=== PATIENT | female | born 1975 | race Caucasian/White ===

== ENCOUNTER 2019-12-16 23:44 | Emergency (ER) | payer OTHER, MEDICAID ==
[2019-12-16] MEDS ORDERED: Sodium Chloride 0.9% 1,000 ML IV ONE (23:57)
--- NOTE | 2019-12-17 00:09 | EDM.PDOC ---
ED HPI GENERAL MEDICAL PROBLEM - General Chief Complaint: General Stated Complaint: OD Time Seen by Provider: 12/16/19 23:50 Source of Information: Reports: Patient, EMS History Limitations: Reports: Altered Mental Status, Intoxication, Uncooperative - History of Present Illness INITIAL COMMENTS - FREE TEXT/NARRATIVE: Ricarda comes into [facility] ED by EMS following a call at 2300 hrs by neighbor who witnessed patient who apparently had collapsed over some furniture this evening. Intoxication is suspected, although EMS personnel did not find empty bottles, med bottles, or notes. Collateral information from friends by phone noted her consumption of a pt of vodka this evening, past history of mental illness taking Latuda, and possibility of . She is lethargic, combative and uncooperative. - Related Data Allergies Allergy/AdvReac Type Severity Reaction Status Date / Time No Known Allergies Allergy Verified 02/02/15 19:16 Past Medical History Psychiatric History: Reports: Bipolar ED ROS GENERAL - Review of Systems Review Of Systems: Unable To Obtain Reason Not Obtained: intoxication ED EXAM, GENERAL - Physical Exam Exam: See Below Exam Limited By: Altered Mental Status General Appearance: Lethargic, Thin Eye Exam: Bilateral Eye: Normal Inspection, PERRL Ears: Normal External Exam Nose: Normal Inspection Throat/Mouth: Normal Lips, No Airway Compromise Head: Normocephalic Neck: Normal Inspection Respiratory/Chest: No Respiratory Distress, Lungs Clear Cardiovascular: Regular Rate, Rhythm, No Murmur GI/Abdominal: Normal Bowel Sounds, Soft, Non-Tender, No Organomegaly, No Distention, No Mass Back Exam: Normal Inspection Extremities: Normal Inspection Neurological: Inattentive, Confused, Disoriented, Slow to Respond Psychiatric: Other (lethargic) Skin Exam: Dry, Intact, Pallor Lymphatic: No Adenopathy Course - Vital Signs Text/Narrative:: Following assessment, IV fluids with D5LR continued for 2L, followed by D5LR .5L with multivits and Thiamine 100 mg IV. Serial ETOH levels of .40 and .33 were obtained over the next 10 hours, with patient awake, alert, and cooperative. She continues to deny excessive ETOH consumption in light of remaining levels, and threatened to walk out AMA if not discharged. She doesn't drive, and will be offered a cab ride home to be with friends. Last Recorded V/S: Last Vital Signs Temp 35.3 C L 12/17/19 00:09 Pulse 73 12/17/19 00:09 Resp 20 12/17/19 04:00 BP 78/36 L 12/17/19 04:00 Pulse Ox 100 12/17/19 04:00 - Orders/Labs/Meds Orders: Active Orders 24 hr Category Date Time Status EKG Documentation Completion [RC] ASDIRECTED Care 12/16/19 23:59 Active Sodium Chloride 0.9% [Normal Saline] 1,000 ml Med 12/17/19 03:00 Active IV ASDIRECTED EKG 12 Lead [EK] Routine Ther 12/16/19 23:57 Ordered Medication Orders Sodium Chloride (Normal Saline) 1,000 mls @ 250 mls/hr IV ASDIRECTED GILBERT Last Admin: 12/17/19 02:49 Dose: 250 mls/hr Labs: Laboratory Tests 12/17/19 12/17/19 12/17/19 Range/Units 00:20 00:20 00:20 WBC 7.4 (4.5-12.0) X10-3/uL RBC 3.56 (3.23-5.20) x10(6)uL Hgb 12.3 (11.5-15.5) g/dL Hct 36.1 (30.0-51.3) % MCV 101.2 H (80-96) fL MCH 34.5 H (27.7-33.6) pg MCHC 34.1 (32.2-35.4) g/dL RDW 13.6 (11.5-15.5) % Plt Count 516 H (125-369) X10(3)uL MPV 7.0 L (7.4-10.4) fL Neut % (Auto) 56.5 (46-82) % Lymph % (Auto) 27.5 (13-37) % [place] % (Auto) 11.6 (4-12) % Eos % (Auto) 3 (1.0-5.0) % Baso % (Auto) 1 (0-2) % Neut # (Auto) 4.2 (1.6-8.3) # Lymph # (Auto) 2.0 (0.6-5.0) # [place] # (Auto) 0.9 (0.0-1.3) # Eos # (Auto) 0.2 (0.0-0.8) # Baso # (Auto) 0.1 (0.0-0.2) # Sodium 143 (135-145) mmol/L Potassium 3.4 L (3.5-5.3) mmol/L Chloride 108 (100-110) mmol/L Carbon Dioxide 22 (21-32) mmol/L BUN 10 (7-18) mg/dL Creatinine 0.6 (0.55-1.02) mg/dL Est Cr Clr Drug Dosing 105.42 mL/min Estimated GFR (MDRD) > 60 (>60) BUN/Creatinine Ratio 16.7 (9-20) Glucose 99 (80-116) mg/dL Calcium 7.9 L (8.6-10.2) mg/dL Urine HCG, Qual (NEGATIVE) Salicylates (<2.8) mg/dL Urine Opiates Screen (NEGATIVE) Ur Oxycodone Screen (NEGATIVE) Ur Propoxyphene Screen (NEGATIVE) Acetaminophen (<2) ug/mL Ur Barbituates Screen (NEGATIVE) Ur Tricyclics Screen (NEGATIVE) Ur Phencyclidine Scrn (NEGATIVE) Ur Amphetamine Screen (NEGATIVE) Urine MDMA Screen (NEGATIVE) U Benzodiazepines Scrn (NEGATIVE) U Cocaine Metab Screen (NEGATIVE) U Marijuana (THC) Screen (NEGATIVE) Ethyl Alcohol 0.45 H* (<0.03) % 12/17/19 12/17/19 12/17/19 Range/Units 00:20 01:19 01:19 WBC (4.5-12.0) X10-3/uL RBC (3.23-5.20) x10(6)uL Hgb (11.5-15.5) g/dL Hct (30.0-51.3) % MCV (80-96) fL MCH (27.7-33.6) pg MCHC (32.2-35.4) g/dL RDW (11.5-15.5) % Plt Count (125-369) X10(3)uL MPV (7.4-10.4) fL Neut % (Auto) (46-82) % Lymph % (Auto) (13-37) % [place] % (Auto) (4-12) % Eos % (Auto) (1.0-5.0) % Baso % (Auto) (0-2) % Neut # (Auto) (1.6-8.3) # Lymph # (Auto) (0.6-5.0) # [place] # (Auto) (0.0-1.3) # Eos # (Auto) (0.0-0.8) # Baso # (Auto) (0.0-0.2) # Sodium (135-145) mmol/L Potassium (3.5-5.3) mmol/L Chloride (100-110) mmol/L Carbon Dioxide (21-32) mmol/L BUN (7-18) mg/dL Creatinine (0.55-1.02) mg/dL Est Cr Clr Drug Dosing mL/min Estimated GFR (MDRD) (>60) BUN/Creatinine Ratio (9-20) Glucose (80-116) mg/dL Calcium (8.6-10.2) mg/dL Urine HCG, Qual Negative (NEGATIVE) Salicylates 5.8 (<2.8) mg/dL Urine Opiates Screen Negative (NEGATIVE) Ur Oxycodone Screen Negative (NEGATIVE) Ur Propoxyphene Screen Negative (NEGATIVE) Acetaminophen < 2 L (<2) ug/mL Ur Barbituates Screen Negative (NEGATIVE) Ur Tricyclics Screen Negative (NEGATIVE) Ur Phencyclidine Scrn Negative (NEGATIVE) Ur Amphetamine Screen Negative (NEGATIVE) Urine MDMA Screen Negative (NEGATIVE) U Benzodiazepines Scrn Negative (NEGATIVE) U Cocaine Metab Screen Negative (NEGATIVE) U Marijuana (THC) Screen Negative (NEGATIVE) Ethyl Alcohol (<0.03) % 12/17/19 12/17/19 12/17/19 Range/Units 02:35 06:00 06:00 WBC (4.5-12.0) X10-3/uL RBC (3.23-5.20) x10(6)uL Hgb (11.5-15.5) g/dL Hct (30.0-51.3) % MCV (80-96) fL MCH (27.7-33.6) pg MCHC (32.2-35.4) g/dL RDW (11.5-15.5) % Plt Count (125-369) X10(3)uL MPV (7.4-10.4) fL Neut % (Auto) (46-82) % Lymph % (Auto) (13-37) % [place] % (Auto) (4-12) % Eos % (Auto) (1.0-5.0) % Baso % (Auto) (0-2) % Neut # (Auto) (1.6-8.3) # Lymph # (Auto) (0.6-5.0) # [place] # (Auto) (0.0-1.3) # Eos # (Auto) (0.0-0.8) # Baso # (Auto) (0.0-0.2) # Sodium 148 H (135-145) mmol/L Potassium 3.8 (3.5-5.3) mmol/L Chloride 114 H D (100-110) mmol/L Carbon Dioxide 24 (21-32) mmol/L BUN 7 (7-18) mg/dL Creatinine 0.5 L (0.55-1.02) mg/dL Est Cr Clr Drug Dosing 126.51 mL/min Estimated GFR (MDRD) > 60 (>60) BUN/Creatinine Ratio 14.0 (9-20) Glucose 85 (80-116) mg/dL Calcium 7.3 L (8.6-10.2) mg/dL Urine HCG, Qual (NEGATIVE) Salicylates (<2.8) mg/dL Urine Opiates Screen (NEGATIVE) Ur Oxycodone Screen (NEGATIVE) Ur Propoxyphene Screen (NEGATIVE) Acetaminophen (<2) ug/mL Ur Barbituates Screen (NEGATIVE) Ur Tricyclics Screen (NEGATIVE) Ur Phencyclidine Scrn (NEGATIVE) Ur Amphetamine Screen (NEGATIVE) Urine MDMA Screen (NEGATIVE) U Benzodiazepines Scrn (NEGATIVE) U Cocaine Metab Screen (NEGATIVE) U Marijuana (THC) Screen (NEGATIVE) Ethyl Alcohol 0.40 H* 0.33 H* (<0.03) % Meds: Medications Generic Name Dose Route Start Last Admin Trade Name Freq PRN Reason Stop Dose Admin Sodium Chloride 1,000 mls @ 250 mls/hr 12/17/19 03:00 12/17/19 02:49 Normal Saline IV 250 mls/hr ASDIRECTED GILBERT Administration Discontinued Medications Generic Name Dose Route Start Last Admin Trade Name Freq PRN Reason Stop Dose Admin Sodium Chloride 1,000 mls @ 999 mls/hr 12/16/19 23:57 12/17/19 01:00 Normal Saline IV 12/17/19 00:57 999 mls/hr .BOLUS ONE Administration Sodium Chloride 1,000 mls @ 500 mls/hr 12/17/19 01:00 12/17/19 01:01 Normal Saline IV 500 mls/hr ASDIRECTED GILBERT Administration Sodium Chloride 500 mls @ 500 mls/hr 12/17/19 06:45 12/17/19 07:16 Normal Saline IV 12/17/19 07:44 500 mls/hr .BOLUS ONE Administration Thiamine HCl 100 mg/ Sodium 101 mls @ 202 mls/hr 12/17/19 06:49 12/17/19 07: 04 Chloride IV 12/17/19 06:50 202 mls/hr ONETIME ONE Administration Multivitamins/Minerals 10 ml 12/17/19 06:49 12/17/19 07:16 Infuvite Adult IV 12/17/19 06:50 10 ml ASDIRECTED ONE Administration Nicotine 21 mg 12/17/19 06:44 12/17/19 07:04 Habitrol TRDERM 12/17/19 06:45 21 mg ONETIME ONE Administration Departure - Departure Time of Disposition: 10:10 Disposition: Home, Self-Care 01 Condition: Fair Clinical Impression: Alcohol intoxication Qualifiers: Complication of substance-induced condition: uncomplicated Qualified Code(s): F10.920 - Alcohol use, unspecified with intoxication, uncomplicated - Discharge Information *PRESCRIPTION DRUG MONITORING PROGRAM REVIEWED*: Not Applicable *COPY OF PRESCRIPTION DRUG MONITORING REPORT IN PATIENT CLAUDIA: Not Applicable Referrals: PCP,None [Primary Care Provider] - Forms: ED Department Discharge Sepsis Event Note - Focused Exam Vital Signs: Vital Signs Temp Pulse Resp BP Pulse Ox 12/17/19 04:00 20 78/36 L 100 12/17/19 03:27 20 82/41 L 100 12/17/19 02:49 20 84/50 L 98 12/17/19 02:11 18 78/41 L 99 12/17/19 01:52 20 96/56 L 91 L 12/17/19 00:39 27 H 84/40 L 92 L 12/17/19 00:27 22 H 98/56 L 95 12/17/19 00:09 35.3 C L 73 14 95/62 97 Date Exam was Performed: 12/17/19 Time Exam was Performed: 10:21 - Problem List & Annotations (1) Alcohol intoxication SNOMED Code(s): 37838618 Code(s): F10.929 - ALCOHOL USE, UNSPECIFIED WITH INTOXICATION, UNSPECIFIED Status: Acute Current Visit: Yes Annotation/Comment:: Absolutely no ETOH suggested, and cannot be alone until fully detoxified. Patient agrees to conditions. Qualifiers: Complication of substance-induced condition: uncomplicated Qualified Code(s ): F10.920 - Alcohol use, unspecified with intoxication, uncomplicated - Problem List Review Problem List Initiated/Reviewed/Updated: Yes - My Orders Last 24 Hours: My Active Orders 12/16/19 23:57 EKG 12 Lead [EK] Routine 12/16/19 23:59 EKG Documentation Completion [RC] ASDIRECTED 12/17/19 03:00 Sodium Chloride 0.9% [Normal Saline] 1,000 ml IV ASDIRECTED - Assessment/Plan Last 24 Hours: My Active Orders 12/16/19 23:57 EKG 12 Lead [EK] Routine 12/16/19 23:59 EKG Documentation Completion [RC] ASDIRECTED 12/17/19 03:00 Sodium Chloride 0.9% [Normal Saline] 1,000 ml IV ASDIRECTED Plan: Follow up with PCP.
[2019-12-17 00:12] VITALS: PULSE 73
[2019-12-17] MEDS ORDERED: Sodium Chloride 0.9% 1,000 ML IV SCH ×2 (01:00→03:00)
[2019-12-17 01:04] LABS: ACETAMINOPHEN < 2 ug/mL (<2)
[2019-12-17 04:01] VITALS: BP 78/36
[2019-12-17] MEDS ORDERED: Nicotine 21 MG/24 Hr Patch TRDERM ONE (06:44)
[2019-12-17] MEDS ORDERED: Sodium Chloride 0.9% 500 ML IV ONE (06:45)
[2019-12-17] MEDS ORDERED: Thiamine 100 MG in Sodium Chloride 0.9% 100 ML IV ONE (06:49)
[2019-12-17] MEDS: MVI, Adult with Vitamin K 10 ML SDV IV ONE (07:16)
== END 2019-12-17 10:15 | disposition home or self-care (01) ==
LOC: FB.ED 23:44
DX: F10.920 Alcohol use, unspecified with intoxication, uncomplicated (principal)
CPT/HCPCS: 36415; 80048; 80305; 80307; 81025; 85025; 93005; 96360; 96361; 99284; A9270; J3411; J7030; J7040; J7050

== ENCOUNTER 2020-11-29 12:43 | Inpatient (IN) | payer OTHER, MEDICAID ==
[2020-11-29] MEDS ORDERED: Sodium Chloride 0.9% 1,000 ML IV ONE (13:04)
[2020-11-29] MEDS ORDERED: MVI, Adult with Vitamin K 10 ML, Thiamine 100 MG, Folic Acid 1 MG, Magnesium Sulfate 3 ... IV SCH ×5 (13:15)
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
[2020-11-29] MEDS ORDERED: Metoclopramide 10 MG/2 ML SDV IVPUSH ONE (14:10)
[2020-11-29] MEDS ORDERED: cefTRIAXone 2 GM Vial IVPUSH ONE (14:10)
[2020-11-29] MEDS ORDERED: LORazepam 2 MG/ML SDV IVPUSH ONE (14:51)
[2020-11-29 15:24] LABS: HEMOGLOBIN A1C 5.6 % (<5.7)
[2020-11-29] MEDS ORDERED: D5 1/2 NS w/ 20 mEq/L KCl 1,000 ML IV SCH ×2 (16:00)
[2020-11-29] MEDS ORDERED: cloNIDine 0.1 MG Tab PO PRN (18:04)
[2020-11-29] MEDS ORDERED: LORazepam 2 MG/ML SDV IV SCH (18:15)
[2020-11-29] MEDS: chlordiazePOXIDE 25 MG Cap PO SCH (18:25)
[2020-11-29] MEDS: Pantoprazole 40 MG Vial IV SCH (18:32)
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
[2020-11-29] MEDS: Sodium Chloride 0.9% 1,000 ML IV SCH (20:05)
[2020-11-30] MEDS: Ondansetron 4 MG/2 ML SDV IVPUSH PRN ×2 (00:35→08:53)
[2020-11-30] MEDS: chlordiazePOXIDE 25 MG Cap PO SCH ×3 (01:52→17:51)
--- NOTE | 2020-11-30 08:20 | PCM.PN ---
- General Info Date of Service: 11/30/20 Admission Dx/Problem (Free Text): Admission Diagnosis/Problem Admission Diagnosis/Problem Alcohol withdrawal syndrome Subjective Update: Patient complains of left lower back pain, inferior to the flank area and lateral to the paraspinal muscles. Patient states that overall she is doing well and feels like she would like to try to eat something today but she still feels nauseated and weak. Denies chest pain or shortness of breath. Functional Status: Reports: Pain Controlled - Review of Systems General: Reports: Weakness, Fatigue, Malaise HEENT: Reports: No Symptoms Pulmonary: Reports: No Symptoms Cardiovascular: Reports: No Symptoms Gastrointestinal: Reports: Decreased Appetite, Nausea Genitourinary: Reports: No Symptoms Musculoskeletal: Reports: Back Pain Skin: Reports: No Symptoms Neurological: Reports: Tremors, Difficulty Walking, Weakness Psychiatric: Reports: No Symptoms - Patient Data Vitals - Most Recent: Last Vital Signs Temp 37.0 C 11/30/20 00:00 Pulse 68 11/30/20 00:00 Resp 16 11/30/20 00:00 BP 124/75 11/30/20 00:00 Pulse Ox 95 11/30/20 00:00 Weight - Most Recent: 63.911 kg I&O - Last 24 Hours: Intake & Output 11/29/20 11/30/20 11/30/20 22:59 06:59 14:59 Intake Total 151 Balance 151 Lab Results Last 24 Hours: Laboratory Results - last 24 hr 11/29/20 11/29/20 11/29/20 Range/Units 13:15 13:15 13:15 WBC 6.4 (3.0-10.3) x10-3/uL RBC 3.83 (3.60-5.20) x10(6)uL Hgb 12.9 (11.4-15.5) g/dL Hct 38.6 (34.2-48.2) % MCV 100.6 H (76.7-100.5) fL MCH 33.5 (23.9-33.9) pg MCHC 33.3 (31.9-34.8) g/dL RDW 13.8 (12.3-16.5) % Plt Count 84 L (151-488) x10(3)uL MPV 8.7 (7.1-12.4) fL Neut % (Auto) 87.8 H (30.8-76.2) % Lymph % (Auto) 8.1 L (18.4-52.1) % [place] % (Auto) 3.5 L (4.4-15.7) % Eos % (Auto) 0.0 L (0.6-8.1) % Baso % (Auto) 0.6 (0.2-1.5) % Neut # (Auto) 5.6 (1.5-6.3) x10-3/uL Lymph # (Auto) 0.5 L (1.0-4.4) x10-3/uL [place] # (Auto) 0.2 L (0.3-1.0) x10-3/uL Eos # (Auto) 0.0 (0.0-0.8) x10-3/uL Baso # (Auto) 0.0 (0.0-0.1) x10-3/uL Sodium 139 (135-145) mmol/L Potassium 3.3 L (3.5-5.3) mmol/L Chloride 93 L D (100-110) mmol/L Carbon Dioxide 23 (21-32) mmol/L BUN 15 (7-18) mg/dL Creatinine 0.6 (0.55-1.02) mg/dL Est Cr Clr Drug Dosing TNP Estimated GFR (MDRD) > 60 (>60) BUN/Creatinine Ratio 25.0 H (9-20) Glucose 232 H D (80-116) mg/dL POC Glucose (74-100) mg/dL Hemoglobin A1c (<5.7) % Calcium 8.6 (8.6-10.2) mg/dL Magnesium (1.8-2.5) mg/dL Total Bilirubin 1.3 (0.1-1.3) mg/dL AST 96 H (5-25) IU/L ALT 67 H (12-36) U/L Alkaline Phosphatase 65 (56-112) IU/L Troponin I < 4.0 L (4.0-60.3) pg/mL C-Reactive Protein 0.7 (0.5-0.9) mg/dL Total Protein 8.1 H (6.0-8.0) g/dL Albumin 4.4 (3.5-5.2) g/dL Globulin 3.7 g/dL Albumin/Globulin Ratio 1.2 Lipase 101 (73-393) U/L Vitamin B12 (193-986) pg/mL TSH, Ultra Sensitive (0.36-3.74) IU/mL Urine Color (YELLOW) Urine Appearance (CLEAR) Urine pH (5.0-6.5) Ur Specific [place] (1.010-1.025) Urine Protein (NEGATIVE) mg/dL Urine Glucose (UA) (NORMAL) mg/dL Urine Ketones (NEGATIVE) mg/dL Urine Occult Blood (NEGATIVE) Urine Nitrite (NEGATIVE) Urine Bilirubin (NEGATIVE) Urine Urobilinogen (NEGATIVE) mg/dL Ur Leukocyte Esterase (NEGATIVE) Urine RBC (0-5) Urine WBC (0-5) Ur Squamous Epith Cells (NS,R,O) Urine Bacteria (NS) Urine HCG, Qual (NEGATIVE) Urine Opiates Screen (NEGATIVE) Ur Oxycodone Screen (NEGATIVE) Ur Propoxyphene Screen (NEGATIVE) Ur Barbituates Screen (NEGATIVE) Ur Tricyclics Screen (NEGATIVE) Ur Phencyclidine Scrn (NEGATIVE) Ur Amphetamine Screen (NEGATIVE) Urine MDMA Screen (NEGATIVE) U Benzodiazepines Scrn (NEGATIVE) U Cocaine Metab Screen (NEGATIVE) U Marijuana (THC) Screen (NEGATIVE) Ethyl Alcohol (<0.03) % SARS-CoV-2 RNA (CLYDE) (NEGATIVE) 11/29/20 11/29/20 11/29/20 Range/Units 13:15 13:15 13:15 WBC (3.0-10.3) x10-3/uL RBC (3.60-5.20) x10(6)uL Hgb (11.4-15.5) g/dL Hct (34.2-48.2) % MCV (76.7-100.5) fL MCH (23.9-33.9) pg MCHC (31.9-34.8) g/dL RDW (12.3-16.5) % Plt Count (151-488) x10(3)uL MPV (7.1-12.4) fL Neut % (Auto) (30.8-76.2) % Lymph % (Auto) (18.4-52.1) % [place] % (Auto) (4.4-15.7) % Eos % (Auto) (0.6-8.1) % Baso % (Auto) (0.2-1.5) % Neut # (Auto) (1.5-6.3) x10-3/uL Lymph # (Auto) (1.0-4.4) x10-3/uL [place] # (Auto) (0.3-1.0) x10-3/uL Eos # (Auto) (0.0-0.8) x10-3/uL Baso # (Auto) (0.0-0.1) x10-3/uL Sodium (135-145) mmol/L Potassium (3.5-5.3) mmol/L Chloride (100-110) mmol/L Carbon Dioxide (21-32) mmol/L BUN (7-18) mg/dL Creatinine (0.55-1.02) mg/dL Est Cr Clr Drug Dosing Estimated GFR (MDRD) (>60) BUN/Creatinine Ratio (9-20) Glucose (80-116) mg/dL POC Glucose (74-100) mg/dL Hemoglobin A1c 5.6 (<5.7) % Calcium (8.6-10.2) mg/dL Magnesium 1.6 L (1.8-2.5) mg/dL Total Bilirubin (0.1-1.3) mg/dL AST (5-25) IU/L ALT (12-36) U/L Alkaline Phosphatase (56-112) IU/L Troponin I (4.0-60.3) pg/mL C-Reactive Protein (0.5-0.9) mg/dL Total Protein (6.0-8.0) g/dL Albumin (3.5-5.2) g/dL Globulin g/dL Albumin/Globulin Ratio Lipase (73-393) U/L Vitamin B12 (193-986) pg/mL TSH, Ultra Sensitive (0.36-3.74) IU/mL Urine Color (YELLOW) Urine Appearance (CLEAR) Urine pH (5.0-6.5) Ur Specific [place] (1.010-1.025) Urine Protein (NEGATIVE) mg/dL Urine Glucose (UA) (NORMAL) mg/dL Urine Ketones (NEGATIVE) mg/dL Urine Occult Blood (NEGATIVE) Urine Nitrite (NEGATIVE) Urine Bilirubin (NEGATIVE) Urine Urobilinogen (NEGATIVE) mg/dL Ur Leukocyte Esterase (NEGATIVE) Urine RBC (0-5) Urine WBC (0-5) Ur Squamous Epith Cells (NS,R,O) Urine Bacteria (NS) Urine HCG, Qual (NEGATIVE) Urine Opiates Screen (NEGATIVE) Ur Oxycodone Screen (NEGATIVE) Ur Propoxyphene Screen (NEGATIVE) Ur Barbituates Screen (NEGATIVE) Ur Tricyclics Screen (NEGATIVE) Ur Phencyclidine Scrn (NEGATIVE) Ur Amphetamine Screen (NEGATIVE) Urine MDMA Screen (NEGATIVE) U Benzodiazepines Scrn (NEGATIVE) U Cocaine Metab Screen (NEGATIVE) U Marijuana (THC) Screen (NEGATIVE) Ethyl Alcohol < 0.03 (<0.03) % SARS-CoV-2 RNA (CLYDE) (NEGATIVE) 11/29/20 11/29/20 11/29/20 Range/Units 13:15 13:25 13:25 WBC (3.0-10.3) x10-3/uL RBC (3.60-5.20) x10(6)uL Hgb (11.4-15.5) g/dL Hct (34.2-48.2) % MCV (76.7-100.5) fL MCH (23.9-33.9) pg MCHC (31.9-34.8) g/dL RDW (12.3-16.5) % Plt Count (151-488) x10(3)uL MPV (7.1-12.4) fL Neut % (Auto) (30.8-76.2) % Lymph % (Auto) (18.4-52.1) % [place] % (Auto) (4.4-15.7) % Eos % (Auto) (0.6-8.1) % Baso % (Auto) (0.2-1.5) % Neut # (Auto) (1.5-6.3) x10-3/uL Lymph # (Auto) (1.0-4.4) x10-3/uL [place] # (Auto) (0.3-1.0) x10-3/uL Eos # (Auto) (0.0-0.8) x10-3/uL Baso # (Auto) (0.0-0.1) x10-3/uL Sodium (135-145) mmol/L Potassium (3.5-5.3) mmol/L Chloride (100-110) mmol/L Carbon Dioxide (21-32) mmol/L BUN (7-18) mg/dL Creatinine (0.55-1.02) mg/dL Est Cr Clr Drug Dosing Estimated GFR (MDRD) (>60) BUN/Creatinine Ratio (9-20) Glucose (80-116) mg/dL POC Glucose (74-100) mg/dL Hemoglobin A1c (<5.7) % Calcium (8.6-10.2) mg/dL Magnesium (1.8-2.5) mg/dL Total Bilirubin (0.1-1.3) mg/dL AST (5-25) IU/L ALT (12-36) U/L Alkaline Phosphatase (56-112) IU/L Troponin I (4.0-60.3) pg/mL C-Reactive Protein (0.5-0.9) mg/dL Total Protein (6.0-8.0) g/dL Albumin (3.5-5.2) g/dL Globulin g/dL Albumin/Globulin Ratio Lipase (73-393) U/L Vitamin B12 759 (193-986) pg/mL TSH, Ultra Sensitive 1.05 (0.36-3.74) IU/mL Urine Color Yellow (YELLOW) Urine Appearance Cloudy (CLEAR) Urine pH 6.5 (5.0-6.5) Ur Specific [place] 1.010 (1.010-1.025) Urine Protein Trace (NEGATIVE) mg/dL Urine Glucose (UA) 50 H (NORMAL) mg/dL Urine Ketones 150 H (NEGATIVE) mg/dL Urine Occult Blood Moderate H (NEGATIVE) Urine Nitrite Negative (NEGATIVE) Urine Bilirubin Negative (NEGATIVE) Urine Urobilinogen Normal (NEGATIVE) mg/dL Ur Leukocyte Esterase Small H (NEGATIVE) Urine RBC 5-10 H (0-5) Urine WBC 30-40 H (0-5) Ur Squamous Epith Cells Few H (NS,R,O) Urine Bacteria Many H (NS) Urine HCG, Qual Negative (NEGATIVE) Urine Opiates Screen (NEGATIVE) Ur Oxycodone Screen (NEGATIVE) Ur Propoxyphene Screen (NEGATIVE) Ur Barbituates Screen (NEGATIVE) Ur Tricyclics Screen (NEGATIVE) Ur Phencyclidine Scrn (NEGATIVE) Ur Amphetamine Screen (NEGATIVE) Urine MDMA Screen (NEGATIVE) U Benzodiazepines Scrn (NEGATIVE) U Cocaine Metab Screen (NEGATIVE) U Marijuana (THC) Screen (NEGATIVE) Ethyl Alcohol (<0.03) % SARS-CoV-2 RNA (CLYDE) (NEGATIVE) 11/29/20 11/29/20 11/29/20 Range/Units 13:25 14:27 15:08 WBC (3.0-10.3) x10-3/uL RBC (3.60-5.20) x10(6)uL Hgb (11.4-15.5) g/dL Hct (34.2-48.2) % MCV (76.7-100.5) fL MCH (23.9-33.9) pg MCHC (31.9-34.8) g/dL RDW (12.3-16.5) % Plt Count (151-488) x10(3)uL MPV (7.1-12.4) fL Neut % (Auto) (30.8-76.2) % Lymph % (Auto) (18.4-52.1) % [place] % (Auto) (4.4-15.7) % Eos % (Auto) (0.6-8.1) % Baso % (Auto) (0.2-1.5) % Neut # (Auto) (1.5-6.3) x10-3/uL Lymph # (Auto) (1.0-4.4) x10-3/uL [place] # (Auto) (0.3-1.0) x10-3/uL Eos # (Auto) (0.0-0.8) x10-3/uL Baso # (Auto) (0.0-0.1) x10-3/uL Sodium (135-145) mmol/L Potassium (3.5-5.3) mmol/L Chloride (100-110) mmol/L Carbon Dioxide (21-32) mmol/L BUN (7-18) mg/dL Creatinine (0.55-1.02) mg/dL Est Cr Clr Drug Dosing Estimated GFR (MDRD) (>60) BUN/Creatinine Ratio (9-20) Glucose (80-116) mg/dL POC Glucose 201 H (74-100) mg/dL Hemoglobin A1c (<5.7) % Calcium (8.6-10.2) mg/dL Magnesium (1.8-2.5) mg/dL Total Bilirubin (0.1-1.3) mg/dL AST (5-25) IU/L ALT (12-36) U/L Alkaline Phosphatase (56-112) IU/L Troponin I (4.0-60.3) pg/mL C-Reactive Protein (0.5-0.9) mg/dL Total Protein (6.0-8.0) g/dL Albumin (3.5-5.2) g/dL Globulin g/dL Albumin/Globulin Ratio Lipase (73-393) U/L Vitamin B12 (193-986) pg/mL TSH, Ultra Sensitive (0.36-3.74) IU/mL Urine Color (YELLOW) Urine Appearance (CLEAR) Urine pH (5.0-6.5) Ur Specific [place] (1.010-1.025) Urine Protein (NEGATIVE) mg/dL Urine Glucose (UA) (NORMAL) mg/dL Urine Ketones (NEGATIVE) mg/dL Urine Occult Blood (NEGATIVE) Urine Nitrite (NEGATIVE) Urine Bilirubin (NEGATIVE) Urine Urobilinogen (NEGATIVE) mg/dL Ur Leukocyte Esterase (NEGATIVE) Urine RBC (0-5) Urine WBC (0-5) Ur Squamous Epith Cells (NS,R,O) Urine Bacteria (NS) Urine HCG, Qual (NEGATIVE) Urine Opiates Screen Negative (NEGATIVE) Ur Oxycodone Screen Negative (NEGATIVE) Ur Propoxyphene Screen Negative (NEGATIVE) Ur Barbituates Screen Negative (NEGATIVE) Ur Tricyclics Screen Negative (NEGATIVE) Ur Phencyclidine Scrn Negative (NEGATIVE) Ur Amphetamine Screen Negative (NEGATIVE) Urine MDMA Screen Negative (NEGATIVE) U Benzodiazepines Scrn Negative (NEGATIVE) U Cocaine Metab Screen Negative (NEGATIVE) U Marijuana (THC) Screen Negative (NEGATIVE) Ethyl Alcohol (<0.03) % SARS-CoV-2 RNA (CLYDE) Negative (NEGATIVE) 11/30/20 11/30/20 Range/Units 06:12 06:12 WBC 6.3 (3.0-10.3) x10-3/uL RBC 3.16 L (3.60-5.20) x10(6)uL Hgb 10.7 L (11.4-15.5) g/dL Hct 31.5 L (34.2-48.2) % MCV 99.4 (76.7-100.5) fL MCH 33.9 (23.9-33.9) pg MCHC 34.1 (31.9-34.8) g/dL RDW 13.4 (12.3-16.5) % Plt Count 65 L (151-488) x10(3)uL MPV 8.7 (7.1-12.4) fL Neut % (Auto) 77.6 H (30.8-76.2) % Lymph % (Auto) 16.5 L (18.4-52.1) % [place] % (Auto) 4.5 (4.4-15.7) % Eos % (Auto) 1.0 (0.6-8.1) % Baso % (Auto) 0.4 (0.2-1.5) % Neut # (Auto) 4.9 (1.5-6.3) x10-3/uL Lymph # (Auto) 1.0 (1.0-4.4) x10-3/uL [place] # (Auto) 0.3 (0.3-1.0) x10-3/uL Eos # (Auto) 0.1 (0.0-0.8) x10-3/uL Baso # (Auto) 0.0 (0.0-0.1) x10-3/uL Sodium 132 L (135-145) mmol/L Potassium 2.7 L* (3.5-5.3) mmol/L Chloride 96 L (100-110) mmol/L Carbon Dioxide 22 (21-32) mmol/L BUN 11 (7-18) mg/dL Creatinine 0.5 L (0.55-1.02) mg/dL Est Cr Clr Drug Dosing 118.85 Estimated GFR (MDRD) > 60 (>60) BUN/Creatinine Ratio 22.0 H (9-20) Glucose 78 L D (80-116) mg/dL POC Glucose (74-100) mg/dL Hemoglobin A1c (<5.7) % Calcium 7.1 L (8.6-10.2) mg/dL Magnesium 2.0 (1.8-2.5) mg/dL Total Bilirubin 0.8 (0.1-1.3) mg/dL AST 65 H D (5-25) IU/L ALT 47 H D (12-36) U/L Alkaline Phosphatase 52 L (56-112) IU/L Troponin I (4.0-60.3) pg/mL C-Reactive Protein (0.5-0.9) mg/dL Total Protein 6.2 (6.0-8.0) g/dL Albumin 3.3 L (3.5-5.2) g/dL Globulin 2.9 g/dL Albumin/Globulin Ratio 1.1 Lipase (73-393) U/L Vitamin B12 (193-986) pg/mL TSH, Ultra Sensitive (0.36-3.74) IU/mL Urine Color (YELLOW) Urine Appearance (CLEAR) Urine pH (5.0-6.5) Ur Specific [place] (1.010-1.025) Urine Protein (NEGATIVE) mg/dL Urine Glucose (UA) (NORMAL) mg/dL Urine Ketones (NEGATIVE) mg/dL Urine Occult Blood (NEGATIVE) Urine Nitrite (NEGATIVE) Urine Bilirubin (NEGATIVE) Urine Urobilinogen (NEGATIVE) mg/dL Ur Leukocyte Esterase (NEGATIVE) Urine RBC (0-5) Urine WBC (0-5) Ur Squamous Epith Cells (NS,R,O) Urine Bacteria (NS) Urine HCG, Qual (NEGATIVE) Urine Opiates Screen (NEGATIVE) Ur Oxycodone Screen (NEGATIVE) Ur Propoxyphene Screen (NEGATIVE) Ur Barbituates Screen (NEGATIVE) Ur Tricyclics Screen (NEGATIVE) Ur Phencyclidine Scrn (NEGATIVE) Ur Amphetamine Screen (NEGATIVE) Urine MDMA Screen (NEGATIVE) U Benzodiazepines Scrn (NEGATIVE) U Cocaine Metab Screen (NEGATIVE) U Marijuana (THC) Screen (NEGATIVE) Ethyl Alcohol (<0.03) % SARS-CoV-2 RNA (CLYDE) (NEGATIVE) Jonathon Results Last 24 Hours: Microbiology 11/29/20 13:25 Urine Culture - Preliminary Urine, Clean Catch Gram Negative Rods Med Orders - Current: Current Medications Ceftriaxone Sodium (Ceftriaxone 1 Gm Vial) 1 gm IVPUSH Q24H [facility] Chlordiazepoxide HCl (Librium) 25 mg PO Q8H [facility] Last Admin: 11/30/20 01:52 Dose: 25 mg Documented by: Clonidine HCl (Catapres) 0.1 mg PO Q6H PRN PRN Reason: Adrenergic Systems Folic Acid (Folic Acid) 1 mg PO DAILY [facility] Multivitamins/Minerals 10 ml/Thiamine HCl 100 mg/ Folic Acid 1 mg/ Magnesium Sulfate 3 gm/ Sodium Chloride 1,017.2 mls @ 999 mls/hr IV ASDIRECTED [facility] Last Admin: 11/29/20 13:47 Dose: 999 mls/hr Documented by: Sodium Chloride (Normal Saline) 1,000 mls @ 75 mls/hr IV ASDIRECTED [facility] Last Admin: 11/29/20 20:05 Dose: 75 mls/hr Documented by: Lorazepam (Ativan) 0 mg IV ASDIRECTED [facility]; Protocol Ondansetron HCl (Zofran) 4 mg IVPUSH Q4H PRN PRN Reason: Nausea/Vomiting Last Admin: 11/30/20 00:35 Dose: 4 mg Documented by: Pantoprazole Sodium (Protonix Iv) 40 mg IV DAILY [facility] Last Admin: 11/29/20 18:32 Dose: 40 mg Documented by: Potassium Chloride (Potassium Chloride 20 Meq Tab.Er) 40 meq PO BID [facility] Tetrahydrozoline HCl (Peg 400/Tetrahydrozoline Ophth Soln 15 Ml Bottle) 2 ml EYEBOTH ASDIRECTED PRN PRN Reason: Dry Eyes Thiamine HCl (Vitamin B-1) 100 mg PO DAILY [facility] Thiamine HCl (Thiamine 100 Mg Tab) 100 mg PO BEDTIME [facility] Discontinued Medications Ceftriaxone Sodium (Rocephin) 1 gm IVPUSH ONETIME ONE Stop: 11/29/20 14:11 Last Admin: 11/29/20 14:25 Dose: 1 gm Documented by: Sodium Chloride (Normal Saline) 1,000 mls @ 999 mls/hr IV .BOLUS ONE Stop: 11/29/20 14:04 Last Admin: 11/29/20 13:05 Dose: 999 mls/hr Documented by: Potassium Chloride/Dextrose/Sod Cl (D5 1/2 Ns W/ 20 Meq/L Kcl) 1,000 mls @ 125 mls/hr IV ASDIRECTED [facility] Potassium Chloride/Dextrose/Sod Cl (D5 1/2 Ns W/ 20 Meq/L Kcl) 1,000 mls @ 125 mls/hr IV Q8H [facility] Last Admin: 11/29/20 16:30 Dose: 125 mls/hr Documented by: Lorazepam (Ativan) 1 mg IVPUSH ONETIME ONE Stop: 11/29/20 14:52 Last Admin: 11/29/20 15:10 Dose: 1 mg Documented by: Metoclopramide HCl (Reglan) 10 mg IVPUSH ONETIME ONE Stop: 11/29/20 14:11 Last Admin: 11/29/20 14:20 Dose: 10 mg Documented by: - Exam Quality Assessment: Supplemental Oxygen General: Alert, Oriented, Cooperative, Mild Distress HEENT: EOMI, Mucous Membr. Moist/[place] Lungs: Clear to Auscultation Cardiovascular: Regular Rate, Regular Rhythm GI/Abdominal Exam: Normal Bowel Sounds, Soft, Non-Tender Back Exam: Other (Areas of discolored skin secondary to skin grafts, no obvious swelling, edema, ecchymosis in the area of the left lower lateral back but there is tenderness to palpation). No: CVA Tenderness (R), CVA Tenderness (L), Vertebral Tenderness Extremities: Normal Inspection Peripheral Pulses: 2+: Radial (L), Radial (R), Dorsalis Pedis (L), Dorsalis Pedis (R) Skin: Warm, Dry Neurological: No: Normal Gait Psy/Mental Status: Alert, Normal Affect - Patient Data Lab Results Last 24 hrs: Laboratory Results - last 24 hr 11/29/20 11/29/20 11/29/20 Range/Units 13:15 13:15 13:15 WBC 6.4 (3.0-10.3) x10-3/uL RBC 3.83 (3.60-5.20) x10(6)uL Hgb 12.9 (11.4-15.5) g/dL Hct 38.6 (34.2-48.2) % MCV 100.6 H (76.7-100.5) fL MCH 33.5 (23.9-33.9) pg MCHC 33.3 (31.9-34.8) g/dL RDW 13.8 (12.3-16.5) % Plt Count 84 L (151-488) x10(3)uL MPV 8.7 (7.1-12.4) fL Neut % (Auto) 87.8 H (30.8-76.2) % Lymph % (Auto) 8.1 L (18.4-52.1) % [place] % (Auto) 3.5 L (4.4-15.7) % Eos % (Auto) 0.0 L (0.6-8.1) % Baso % (Auto) 0.6 (0.2-1.5) % Neut # (Auto) 5.6 (1.5-6.3) x10-3/uL Lymph # (Auto) 0.5 L (1.0-4.4) x10-3/uL [place] # (Auto) 0.2 L (0.3-1.0) x10-3/uL Eos # (Auto) 0.0 (0.0-0.8) x10-3/uL Baso # (Auto) 0.0 (0.0-0.1) x10-3/uL Sodium 139 (135-145) mmol/L Potassium 3.3 L (3.5-5.3) mmol/L Chloride 93 L D (100-110) mmol/L Carbon Dioxide 23 (21-32) mmol/L BUN 15 (7-18) mg/dL Creatinine 0.6 (0.55-1.02) mg/dL Est Cr Clr Drug Dosing TNP Estimated GFR (MDRD) > 60 (>60) BUN/Creatinine Ratio 25.0 H (9-20) Glucose 232 H D (80-116) mg/dL POC Glucose (74-100) mg/dL Hemoglobin A1c (<5.7) % Calcium 8.6 (8.6-10.2) mg/dL Magnesium (1.8-2.5) mg/dL Total Bilirubin 1.3 (0.1-1.3) mg/dL AST 96 H (5-25) IU/L ALT 67 H (12-36) U/L Alkaline Phosphatase 65 (56-112) IU/L Troponin I < 4.0 L (4.0-60.3) pg/mL C-Reactive Protein 0.7 (0.5-0.9) mg/dL Total Protein 8.1 H (6.0-8.0) g/dL Albumin 4.4 (3.5-5.2) g/dL Globulin 3.7 g/dL Albumin/Globulin Ratio 1.2 Lipase 101 (73-393) U/L Vitamin B12 (193-986) pg/mL TSH, Ultra Sensitive (0.36-3.74) IU/mL Urine Color (YELLOW) Urine Appearance (CLEAR) Urine pH (5.0-6.5) Ur Specific [place] (1.010-1.025) Urine Protein (NEGATIVE) mg/dL Urine Glucose (UA) (NORMAL) mg/dL Urine Ketones (NEGATIVE) mg/dL Urine Occult Blood (NEGATIVE) Urine Nitrite (NEGATIVE) Urine Bilirubin (NEGATIVE) Urine Urobilinogen (NEGATIVE) mg/dL Ur Leukocyte Esterase (NEGATIVE) Urine RBC (0-5) Urine WBC (0-5) Ur Squamous Epith Cells (NS,R,O) Urine Bacteria (NS) Urine HCG, Qual (NEGATIVE) Urine Opiates Screen (NEGATIVE) Ur Oxycodone Screen (NEGATIVE) Ur Propoxyphene Screen (NEGATIVE) Ur Barbituates Screen (NEGATIVE) Ur Tricyclics Screen (NEGATIVE) Ur Phencyclidine Scrn (NEGATIVE) Ur Amphetamine Screen (NEGATIVE) Urine MDMA Screen (NEGATIVE) U Benzodiazepines Scrn (NEGATIVE) U Cocaine Metab Screen (NEGATIVE) U Marijuana (THC) Screen (NEGATIVE) Ethyl Alcohol (<0.03) % SARS-CoV-2 RNA (LCYDE) (NEGATIVE) 11/29/20 11/29/20 11/29/20 Range/Units 13:15 13:15 13:15 WBC (3.0-10.3) x10-3/uL RBC (3.60-5.20) x10(6)uL Hgb (11.4-15.5) g/dL Hct (34.2-48.2) % MCV (76.7-100.5) fL MCH (23.9-33.9) pg MCHC (31.9-34.8) g/dL RDW (12.3-16.5) % Plt Count (151-488) x10(3)uL MPV (7.1-12.4) fL Neut % (Auto) (30.8-76.2) % Lymph % (Auto) (18.4-52.1) % [place] % (Auto) (4.4-15.7) % Eos % (Auto) (0.6-8.1) % Baso % (Auto) (0.2-1.5) % Neut # (Auto) (1.5-6.3) x10-3/uL Lymph # (Auto) (1.0-4.4) x10-3/uL [place] # (Auto) (0.3-1.0) x10-3/uL Eos # (Auto) (0.0-0.8) x10-3/uL Baso # (Auto) (0.0-0.1) x10-3/uL Sodium (135-145) mmol/L Potassium (3.5-5.3) mmol/L Chloride (100-110) mmol/L Carbon Dioxide (21-32) mmol/L BUN (7-18) mg/dL Creatinine (0.55-1.02) mg/dL Est Cr Clr Drug Dosing Estimated GFR (MDRD) (>60) BUN/Creatinine Ratio (9-20) Glucose (80-116) mg/dL POC Glucose (74-100) mg/dL Hemoglobin A1c 5.6 (<5.7) % Calcium (8.6-10.2) mg/dL Magnesium 1.6 L (1.8-2.5) mg/dL Total Bilirubin (0.1-1.3) mg/dL AST (5-25) IU/L ALT (12-36) U/L Alkaline Phosphatase (56-112) IU/L Troponin I (4.0-60.3) pg/mL C-Reactive Protein (0.5-0.9) mg/dL Total Protein (6.0-8.0) g/dL Albumin (3.5-5.2) g/dL Globulin g/dL Albumin/Globulin Ratio Lipase (73-393) U/L Vitamin B12 (193-986) pg/mL TSH, Ultra Sensitive (0.36-3.74) IU/mL Urine Color (YELLOW) Urine Appearance (CLEAR) Urine pH (5.0-6.5) Ur Specific [place] (1.010-1.025) Urine Protein (NEGATIVE) mg/dL Urine Glucose (UA) (NORMAL) mg/dL Urine Ketones (NEGATIVE) mg/dL Urine Occult Blood (NEGATIVE) Urine Nitrite (NEGATIVE) Urine Bilirubin (NEGATIVE) Urine Urobilinogen (NEGATIVE) mg/dL Ur Leukocyte Esterase (NEGATIVE) Urine RBC (0-5) Urine WBC (0-5) Ur Squamous Epith Cells (NS,R,O) Urine Bacteria (NS) Urine HCG, Qual (NEGATIVE) Urine Opiates Screen (NEGATIVE) Ur Oxycodone Screen (NEGATIVE) Ur Propoxyphene Screen (NEGATIVE) Ur Barbituates Screen (NEGATIVE) Ur Tricyclics Screen (NEGATIVE) Ur Phencyclidine Scrn (NEGATIVE) Ur Amphetamine Screen (NEGATIVE) Urine MDMA Screen (NEGATIVE) U Benzodiazepines Scrn (NEGATIVE) U Cocaine Metab Screen (NEGATIVE) U Marijuana (THC) Screen (NEGATIVE) Ethyl Alcohol < 0.03 (<0.03) % SARS-CoV-2 RNA (CLYDE) (NEGATIVE) 11/29/20 11/29/20 11/29/20 Range/Units 13:15 13:25 13:25 WBC (3.0-10.3) x10-3/uL RBC (3.60-5.20) x10(6)uL Hgb (11.4-15.5) g/dL Hct (34.2-48.2) % MCV (76.7-100.5) fL MCH (23.9-33.9) pg MCHC (31.9-34.8) g/dL RDW (12.3-16.5) % Plt Count (151-488) x10(3)uL MPV (7.1-12.4) fL Neut % (Auto) (30.8-76.2) % Lymph % (Auto) (18.4-52.1) % [place] % (Auto) (4.4-15.7) % Eos % (Auto) (0.6-8.1) % Baso % (Auto) (0.2-1.5) % Neut # (Auto) (1.5-6.3) x10-3/uL Lymph # (Auto) (1.0-4.4) x10-3/uL [place] # (Auto) (0.3-1.0) x10-3/uL Eos # (Auto) (0.0-0.8) x10-3/uL Baso # (Auto) (0.0-0.1) x10-3/uL Sodium (135-145) mmol/L Potassium (3.5-5.3) mmol/L Chloride (100-110) mmol/L Carbon Dioxide (21-32) mmol/L BUN (7-18) mg/dL Creatinine (0.55-1.02) mg/dL Est Cr Clr Drug Dosing Estimated GFR (MDRD) (>60) BUN/Creatinine Ratio (9-20) Glucose (80-116) mg/dL POC Glucose (74-100) mg/dL Hemoglobin A1c (<5.7) % Calcium (8.6-10.2) mg/dL Magnesium (1.8-2.5) mg/dL Total Bilirubin (0.1-1.3) mg/dL AST (5-25) IU/L ALT (12-36) U/L Alkaline Phosphatase (56-112) IU/L Troponin I (4.0-60.3) pg/mL C-Reactive Protein (0.5-0.9) mg/dL Total Protein (6.0-8.0) g/dL Albumin (3.5-5.2) g/dL Globulin g/dL Albumin/Globulin Ratio Lipase (73-393) U/L Vitamin B12 759 (193-986) pg/mL TSH, Ultra Sensitive 1.05 (0.36-3.74) IU/mL Urine Color Yellow (YELLOW) Urine Appearance Cloudy (CLEAR) Urine pH 6.5 (5.0-6.5) Ur Specific [place] 1.010 (1.010-1.025) Urine Protein Trace (NEGATIVE) mg/dL Urine Glucose (UA) 50 H (NORMAL) mg/dL Urine Ketones 150 H (NEGATIVE) mg/dL Urine Occult Blood Moderate H (NEGATIVE) Urine Nitrite Negative (NEGATIVE) Urine Bilirubin Negative (NEGATIVE) Urine Urobilinogen Normal (NEGATIVE) mg/dL Ur Leukocyte Esterase Small H (NEGATIVE) Urine RBC 5-10 H (0-5) Urine WBC 30-40 H (0-5) Ur Squamous Epith Cells Few H (NS,R,O) Urine Bacteria Many H (NS) Urine HCG, Qual Negative (NEGATIVE) Urine Opiates Screen (NEGATIVE) Ur Oxycodone Screen (NEGATIVE) Ur Propoxyphene Screen (NEGATIVE) Ur Barbituates Screen (NEGATIVE) Ur Tricyclics Screen (NEGATIVE) Ur Phencyclidine Scrn (NEGATIVE) Ur Amphetamine Screen (NEGATIVE) Urine MDMA Screen (NEGATIVE) U Benzodiazepines Scrn (NEGATIVE) U Cocaine Metab Screen (NEGATIVE) U Marijuana (THC) Screen (NEGATIVE) Ethyl Alcohol (<0.03) % SARS-CoV-2 RNA (CLDYE) (NEGATIVE) 0311/29/20 11/29/20 Range/Units 13:25 14:27 15:08 WBC (3.0-10.3) x10-3/uL RBC (3.60-5.20) x10(6)uL Hgb (11.4-15.5) g/dL Hct (34.2-48.2) % MCV (76.7-100.5) fL MCH (23.9-33.9) pg MCHC (31.9-34.8) g/dL RDW (12.3-16.5) % Plt Count (151-488) x10(3)uL MPV (7.1-12.4) fL Neut % (Auto) (30.8-76.2) % Lymph % (Auto) (18.4-52.1) % [place] % (Auto) (4.4-15.7) % Eos % (Auto) (0.6-8.1) % Baso % (Auto) (0.2-1.5) % Neut # (Auto) (1.5-6.3) x10-3/uL Lymph # (Auto) (1.0-4.4) x10-3/uL [place] # (Auto) (0.3-1.0) x10-3/uL Eos # (Auto) (0.0-0.8) x10-3/uL Baso # (Auto) (0.0-0.1) x10-3/uL Sodium (135-145) mmol/L Potassium (3.5-5.3) mmol/L Chloride (100-110) mmol/L Carbon Dioxide (21-32) mmol/L BUN (7-18) mg/dL Creatinine (0.55-1.02) mg/dL Est Cr Clr Drug Dosing Estimated GFR (MDRD) (>60) BUN/Creatinine Ratio (9-20) Glucose (80-116) mg/dL POC Glucose 201 H (74-100) mg/dL Hemoglobin A1c (<5.7) % Calcium (8.6-10.2) mg/dL Magnesium (1.8-2.5) mg/dL Total Bilirubin (0.1-1.3) mg/dL AST (5-25) IU/L ALT (12-36) U/L Alkaline Phosphatase (56-112) IU/L Troponin I (4.0-60.3) pg/mL C-Reactive Protein (0.5-0.9) mg/dL Total Protein (6.0-8.0) g/dL Albumin (3.5-5.2) g/dL Globulin g/dL Albumin/Globulin Ratio Lipase (73-393) U/L Vitamin B12 (193-986) pg/mL TSH, Ultra Sensitive (0.36-3.74) IU/mL Urine Color (YELLOW) Urine Appearance (CLEAR) Urine pH (5.0-6.5) Ur Specific [place] (1.010-1.025) Urine Protein (NEGATIVE) mg/dL Urine Glucose (UA) (NORMAL) mg/dL Urine Ketones (NEGATIVE) mg/dL Urine Occult Blood (NEGATIVE) Urine Nitrite (NEGATIVE) Urine Bilirubin (NEGATIVE) Urine Urobilinogen (NEGATIVE) mg/dL Ur Leukocyte Esterase (NEGATIVE) Urine RBC (0-5) Urine WBC (0-5) Ur Squamous Epith Cells (NS,R,O) Urine Bacteria (NS) Urine HCG, Qual (NEGATIVE) Urine Opiates Screen Negative (NEGATIVE) Ur Oxycodone Screen Negative (NEGATIVE) Ur Propoxyphene Screen Negative (NEGATIVE) Ur Barbituates Screen Negative (NEGATIVE) Ur Tricyclics Screen Negative (NEGATIVE) Ur Phencyclidine Scrn Negative (NEGATIVE) Ur Amphetamine Screen Negative (NEGATIVE) Urine MDMA Screen Negative (NEGATIVE) U Benzodiazepines Scrn Negative (NEGATIVE) U Cocaine Metab Screen Negative (NEGATIVE) U Marijuana (THC) Screen Negative (NEGATIVE) Ethyl Alcohol (<0.03) % SARS-CoV-2 RNA (CLYDE) Negative (NEGATIVE) 11/30/20 11/30/20 Range/Units 06:12 06:12 WBC 6.3 (3.0-10.3) x10-3/uL RBC 3.16 L (3.60-5.20) x10(6)uL Hgb 10.7 L (11.4-15.5) g/dL Hct 31.5 L (34.2-48.2) % MCV 99.4 (76.7-100.5) fL MCH 33.9 (23.9-33.9) pg MCHC 34.1 (31.9-34.8) g/dL RDW 13.4 (12.3-16.5) % Plt Count 65 L (151-488) x10(3)uL MPV 8.7 (7.1-12.4) fL Neut % (Auto) 77.6 H (30.8-76.2) % Lymph % (Auto) 16.5 L (18.4-52.1) % [place] % (Auto) 4.5 (4.4-15.7) % Eos % (Auto) 1.0 (0.6-8.1) % Baso % (Auto) 0.4 (0.2-1.5) % Neut # (Auto) 4.9 (1.5-6.3) x10-3/uL Lymph # (Auto) 1.0 (1.0-4.4) x10-3/uL [place] # (Auto) 0.3 (0.3-1.0) x10-3/uL Eos # (Auto) 0.1 (0.0-0.8) x10-3/uL Baso # (Auto) 0.0 (0.0-0.1) x10-3/uL Sodium 132 L (135-145) mmol/L Potassium 2.7 L* (3.5-5.3) mmol/L Chloride 96 L (100-110) mmol/L Carbon Dioxide 22 (21-32) mmol/L BUN 11 (7-18) mg/dL Creatinine 0.5 L (0.55-1.02) mg/dL Est Cr Clr Drug Dosing 118.85 Estimated GFR (MDRD) > 60 (>60) BUN/Creatinine Ratio 22.0 H (9-20) Glucose 78 L D (80-116) mg/dL POC Glucose (74-100) mg/dL Hemoglobin A1c (<5.7) % Calcium 7.1 L (8.6-10.2) mg/dL Magnesium 2.0 (1.8-2.5) mg/dL Total Bilirubin 0.8 (0.1-1.3) mg/dL AST 65 H D (5-25) IU/L ALT 47 H D (12-36) U/L Alkaline Phosphatase 52 L (56-112) IU/L Troponin I (4.0-60.3) pg/mL C-Reactive Protein (0.5-0.9) mg/dL Total Protein 6.2 (6.0-8.0) g/dL Albumin 3.3 L (3.5-5.2) g/dL Globulin 2.9 g/dL Albumin/Globulin Ratio 1.1 Lipase (73-393) U/L Vitamin B12 (193-986) pg/mL TSH, Ultra Sensitive (0.36-3.74) IU/mL Urine Color (YELLOW) Urine Appearance (CLEAR) Urine pH (5.0-6.5) Ur Specific [place] (1.010-1.025) Urine Protein (NEGATIVE) mg/dL Urine Glucose (UA) (NORMAL) mg/dL Urine Ketones (NEGATIVE) mg/dL Urine Occult Blood (NEGATIVE) Urine Nitrite (NEGATIVE) Urine Bilirubin (NEGATIVE) Urine Urobilinogen (NEGATIVE) mg/dL Ur Leukocyte Esterase (NEGATIVE) Urine RBC (0-5) Urine WBC (0-5) Ur Squamous Epith Cells (NS,R,O) Urine Bacteria (NS) Urine HCG, Qual (NEGATIVE) Urine Opiates Screen (NEGATIVE) Ur Oxycodone Screen (NEGATIVE) Ur Propoxyphene Screen (NEGATIVE) Ur Barbituates Screen (NEGATIVE) Ur Tricyclics Screen (NEGATIVE) Ur Phencyclidine Scrn (NEGATIVE) Ur Amphetamine Screen (NEGATIVE) Urine MDMA Screen (NEGATIVE) U Benzodiazepines Scrn (NEGATIVE) U Cocaine Metab Screen (NEGATIVE) U Marijuana (THC) Screen (NEGATIVE) Ethyl Alcohol (<0.03) % SARS-CoV-2 RNA (CLYDE) (NEGATIVE) Result Diagrams: 11/30/20 06:12 11/30/20 06:12 Jonathon Results Last 24 hrs: Microbiology 11/29/20 13:25 Urine Culture - Preliminary Urine, Clean Catch Gram Negative Rods Sepsis Event Note - Evaluation Sepsis Screening Result: No Definite Risk - Focused Exam Vital Signs: Vital Signs Temp Pulse Resp BP Pulse Ox 11/30/20 00:00 37.0 C 68 16 124/75 95 - Problem List & Annotations (1) Alcohol withdrawal syndrome SNOMED Code(s): 440274879 Code(s): F10.239 - ALCOHOL DEPENDENCE WITH WITHDRAWAL, UNSPECIFIED Status: Acute Current Visit: No (2) Alcohol abuse SNOMED Code(s): 47332258 Code(s): F10.10 - ALCOHOL ABUSE, UNCOMPLICATED Status: Acute Current Visit: No (3) Moderate dehydration SNOMED Code(s): 6795683083945 Code(s): E86.0 - DEHYDRATION Status: Acute Current Visit: No (4) Ketonuria SNOMED Code(s): 174059797 Code(s): R82.4 - ACETONURIA Status: Acute Current Visit: No (5) Urinary tract infection SNOMED Code(s): 63344689 Code(s): N39.0 - URINARY TRACT INFECTION, SITE NOT SPECIFIED Status: Acute Current Visit: No (6) Thrombocytopenia SNOMED Code(s): 244428431 Code(s): D69.6 - THROMBOCYTOPENIA, UNSPECIFIED Status: Acute Current Visit: No (7) Elevated liver function tests SNOMED Code(s): 851243986 Code(s): R79.89 - OTHER SPECIFIED ABNORMAL FINDINGS OF BLOOD CHEMISTRY Status: Acute Current Visit: No (8) Hypomagnesemia SNOMED Code(s): 810435457 Code(s): E83.42 - HYPOMAGNESEMIA Status: Acute Current Visit: No (9) Hypokalemia SNOMED Code(s): 66252885 Code(s): E87.6 - HYPOKALEMIA Status: Acute Current Visit: No (10) Hyperglycemia SNOMED Code(s): 90157220 Code(s): R73.9 - HYPERGLYCEMIA, UNSPECIFIED Status: Acute Current Visit: No (11) Macrocytosis SNOMED Code(s): 091842311 Code(s): D75.89 - OTHER SPECIFIED DISEASES OF BLOOD AND BLOOD-FORMING ORGANS Status: Acute Current Visit: No (12) Left-shifted white blood cells SNOMED Code(s): 46751718 Code(s): D72.89 - OTHER SPECIFIED DISORDERS OF WHITE BLOOD CELLS Status: Acute Current Visit: No (13) Abnormal EKG SNOMED Code(s): 616357168 Code(s): R94.31 - ABNORMAL ELECTROCARDIOGRAM [ECG] [EKG] Status: Acute Current Visit: No (14) Coarse tremors SNOMED Code(s): 75728908 Code(s): G25.2 - OTHER SPECIFIED FORMS OF TREMOR Status: Acute Current Visit: No (15) Nausea and vomiting SNOMED Code(s): 33331154 Code(s): R11.2 - NAUSEA WITH VOMITING, UNSPECIFIED Status: Acute Current Visit: No (16) Cigarette smoker SNOMED Code(s): 68248002 Code(s): F17.210 - NICOTINE DEPENDENCE, CIGARETTES, UNCOMPLICATED Status: Acute Current Visit: Yes - Problem List Review Problem List Initiated/Reviewed/Updated: Yes - My Orders Last 24 Hours: My Active Orders 11/29/20 18:00 chlordiazePOXIDE [Librium] 25 mg PO Q8H 11/29/20 18:02 CIWAA Assessment [RC] Q30M 11/29/20 18:04 Notify Provider [RC] PRN cloNIDine [Catapres] 0.1 mg PO Q6H PRN 11/29/20 18:15 LORazepam [Ativan] See Protocol IV ASDIRECTED Pantoprazole [ProTONIX IV] 40 mg IV DAILY 11/29/20 18:19 Telemetry Monitoring [Cardiac Monitoring] [RC] .As Directed 11/29/20 18:20 Seizure Precautions [OM.PC] Routine 11/29/20 18:44 Ondansetron [Zofran] 4 mg IVPUSH Q4H PRN 11/29/20 18:48 RACHEL Hose [Antiembolic Hose] [OM.PC] Routine 11/29/20 19:00 Sodium Chloride 0.9% [Normal Saline] 1,000 ml IV ASDIRECTED 11/29/20 19:48 Code Status [Resuscitation Status] Routine 11/30/20 07:59 PEG 400/Tetrahydrozoline [Visine Advanced] 2 ml EYEBOTH ASDIRECTED PRN 11/30/20 08:04 Supplement (Dietary) [Dietary Supplements] [RC] WITHMEALSANDBED 11/30/20 08:30 Thiamine [Vitamin B-1] 100 mg PO BEDTIME 11/30/20 09:00 Folic Acid 1 mg PO DAILY Potassium Chloride [Klor-Con M20] 40 meq PO BID Thiamine [Vitamin B-1] 100 mg PO DAILY 11/30/20 Lunch Adult Diet [DIET] 11/30/20 12:00 cefTRIAXone [Rocephin] 1 gm IVPUSH Q24H 11/30/20 13:00 BASIC METABOLIC PANEL,BMP [CHEM] Routine CBC WITH AUTO DIFF [HEME] Routine MAGNESIUM [CHEM] Routine 12/01/20 BASIC METABOLIC PANEL,BMP [CHEM] Routine CBC WITH AUTO DIFF [HEME] Routine - Plan Plan:: Alcohol withdrawal protocol with Librium, Ativan, and clonidine. Zofran as needed for nausea. Protonix IV for GI prophylaxis. Patient will not be given pharmacological DVT prophylaxis secondary to thrombocytopenia with thrombocyte count less than 100, likely secondary to liver disease. DVT prophylaxis with T ED hose CBC, BMP, magnesium in the a.m. and replete electrolytes as indicated. Telemetry monitoring secondary to active withdrawal, prolonged QT, and medications that may cause prolonged QT and other arrhythmias. Potassium 2.7 this morning, replete potassium with 40 mg potassium chloride p.o. twice daily. Monitor electrolytes. Patient likely has anemia and a further reduction in platelet count secondary to fluid repletion. Requested diet was ordered with diet and supplemental nutrition. Closely monitor CBC/thrombocytes. Urine culture shows gram-negative rods, continue ceftriaxone.
[2020-11-30] MEDS ORDERED: Polyvinyl Alcohol 1.4% Ophth Soln 15 ML Bottle EYEBOTH PRN (08:34)
[2020-11-30] MEDS: Pantoprazole 40 MG Vial IV SCH (08:52)
[2020-11-30] MEDS: Thiamine 100 MG Tab PO SCH ×2 (08:53→20:46)
[2020-11-30] MEDS: Folic Acid 1 MG Tab PO SCH (08:53)
[2020-11-30] MEDS ORDERED: Thiamine 100 MG Tab PO SCH (09:00)
[2020-11-30] MEDS ORDERED: Potassium Chloride 20 MEQ Tab.ER PO SCH (09:00)
[2020-11-30] MEDS ORDERED: Potassium Chloride 20 MEQ Packet PO ONE (09:17)
[2020-11-30] MEDS: cefTRIAXone 1 GM Vial IVPUSH SCH (11:09)
[2020-11-30] MEDS ORDERED: LORazepam 1 MG Tab PO SCH (12:00)
[2020-11-30] MEDS ORDERED: cefTRIAXone 1 GM in Sodium Chloride 0.9% 50 ML IV SCH (12:00)
[2020-11-30] MEDS: Sodium Chloride 0.9% 1,000 ML IV SCH (16:15)
[2020-11-30] MEDS ORDERED: Potassium Chloride 20 MEQ Packet PO SCH (21:00)
[2020-12-01] MEDS: chlordiazePOXIDE 25 MG Cap PO SCH (01:22)
[2020-12-01] MEDS: Sodium Chloride 0.9% 1,000 ML IV SCH (05:27)
[2020-12-01] MEDS ORDERED: Loperamide 2 MG Cap PO PRN (07:55)
--- NOTE | 2020-12-01 08:14 | PCM.PN ---
- General Info Date of Service: 12/01/20 Admission Dx/Problem (Free Text): Admission Diagnosis/Problem Admission Diagnosis/Problem Alcohol withdrawal syndrome Subjective Update: Patient states that she is feeling much better today. She was sitting up in bed and talking to her friend when I walked in for the interview/exam. Her only complaint today is diarrhea. She states that she has a forensic social worker counselor. Her frustration is that she was not able to go and see her counselor secondary to Covid 19 restrictions. Offered her referral to social work and to but she declined based on the above information. Functional Status: Reports: Pain Controlled, Tolerating Diet, Ambulating, Urinating - Review of Systems General: Reports: No Symptoms HEENT: Reports: No Symptoms Pulmonary: Reports: No Symptoms Cardiovascular: Reports: No Symptoms Gastrointestinal: Reports: Diarrhea Genitourinary: Reports: No Symptoms Musculoskeletal: Reports: No Symptoms Skin: Reports: No Symptoms Neurological: Reports: No Symptoms Psychiatric: Reports: No Symptoms - Patient Data Vitals - Most Recent: Last Vital Signs Temp 36.4 C 12/01/20 05:13 Pulse 69 12/01/20 05:13 Resp 18 12/01/20 05:13 BP 138/76 12/01/20 05:13 Pulse Ox 99 12/01/20 05:13 Weight - Most Recent: 67.188 kg I&O - Last 24 Hours: Intake & Output 11/30/20 12/01/20 12/01/20 22:59 06:59 14:59 Intake Total 940 640 Balance 940 640 Lab Results Last 24 Hours: Laboratory Results - last 24 hr 11/30/20 11/30/20 12/01/20 Range/Units 13:00 13:00 06:15 WBC 6.3 5.0 (3.0-10.3) x10-3/uL RBC 3.46 L 3.65 (3.60-5.20) x10(6)uL Hgb 11.6 12.4 (11.4-15.5) g/dL Hct 34.8 36.4 (34.2-48.2) % MCV 100.4 99.6 (76.7-100.5) fL MCH 33.5 33.9 (23.9-33.9) pg MCHC 33.4 34.0 (31.9-34.8) g/dL RDW 13.6 13.6 (12.3-16.5) % Plt Count 76 L 77 L (151-488) x10(3)uL MPV 9.1 9.2 (7.1-12.4) fL Neut % (Auto) 76.3 H 57.1 (30.8-76.2) % Lymph % (Auto) 17.7 L 32.6 (18.4-52.1) % [place] % (Auto) 4.7 7.4 (4.4-15.7) % Eos % (Auto) 0.8 2.3 (0.6-8.1) % Baso % (Auto) 0.5 0.6 (0.2-1.5) % Neut # (Auto) 4.8 2.8 (1.5-6.3) x10-3/uL Lymph # (Auto) 1.1 1.6 (1.0-4.4) x10-3/uL [place] # (Auto) 0.3 0.4 (0.3-1.0) x10-3/uL Eos # (Auto) 0.1 0.1 (0.0-0.8) x10-3/uL Baso # (Auto) 0.0 0.0 (0.0-0.1) x10-3/uL Sodium 134 L (135-145) mmol/L Potassium 3.3 L (3.5-5.3) mmol/L Chloride 97 L (100-110) mmol/L Carbon Dioxide 23 (21-32) mmol/L BUN 8 (7-18) mg/dL Creatinine 0.7 (0.55-1.02) mg/dL Est Cr Clr Drug Dosing 84.90 mL/min Estimated GFR (MDRD) > 60 (>60) BUN/Creatinine Ratio 11.4 (9-20) Glucose 146 H (80-116) mg/dL Calcium 7.8 L (8.6-10.2) mg/dL Magnesium 2.0 (1.8-2.5) mg/dL 12/01/20 Range/Units 06:15 WBC (3.0-10.3) x10-3/uL RBC (3.60-5.20) x10(6)uL Hgb (11.4-15.5) g/dL Hct (34.2-48.2) % MCV (76.7-100.5) fL MCH (23.9-33.9) pg MCHC (31.9-34.8) g/dL RDW (12.3-16.5) % Plt Count (151-488) x10(3)uL MPV (7.1-12.4) fL Neut % (Auto) (30.8-76.2) % Lymph % (Auto) (18.4-52.1) % [place] % (Auto) (4.4-15.7) % Eos % (Auto) (0.6-8.1) % Baso % (Auto) (0.2-1.5) % Neut # (Auto) (1.5-6.3) x10-3/uL Lymph # (Auto) (1.0-4.4) x10-3/uL [place] # (Auto) (0.3-1.0) x10-3/uL Eos # (Auto) (0.0-0.8) x10-3/uL Baso # (Auto) (0.0-0.1) x10-3/uL Sodium 134 L (135-145) mmol/L Potassium 3.6 (3.5-5.3) mmol/L Chloride 99 L (100-110) mmol/L Carbon Dioxide 24 (21-32) mmol/L BUN 5 L (7-18) mg/dL Creatinine 0.6 (0.55-1.02) mg/dL Est Cr Clr Drug Dosing 99.05 mL/min Estimated GFR (MDRD) > 60 (>60) BUN/Creatinine Ratio 8.3 L (9-20) Glucose 110 (80-116) mg/dL Calcium 8.1 L (8.6-10.2) mg/dL Magnesium (1.8-2.5) mg/dL Jonathon Results Last 24 Hours: Microbiology 11/29/20 13:25 Urine Culture - Final Urine, Clean Catch Escherichia Coli Med Orders - Current: Current Medications Artificial Tears (Polyvinyl Alcohol 1.4% Ophth Soln 15 Ml Bottle) 0 ml EYEBOTH ASDIRECTED PRN PRN Reason: Dry Eyes Ceftriaxone Sodium (Ceftriaxone 1 Gm Vial) 1 gm IVPUSH Q24H [facility] Last Admin: 03/09/21 11:09 Dose: 1 gm Documented by: Chlordiazepoxide HCl (Chlordiazepoxide 25 Mg Cap) 25 mg PO BID [facility] Clonidine HCl (Clonidine 0.1 Mg Tab) 0.1 mg PO Q6H PRN PRN Reason: Adrenergic Systems Folic Acid (Folic Acid 1 Mg Tab) 1 mg PO DAILY [facility] Last Admin: 11/30/20 08:53 Dose: 1 mg Documented by: Sodium Chloride (Normal Saline) 1,000 mls @ 75 mls/hr IV ASDIRECTED [facility] Last Admin: 12/01/20 05:27 Dose: 75 mls/hr Documented by: Loperamide HCl (Loperamide 2 Mg Cap) 4 mg PO Q6H PRN PRN Reason: Diarrhea Lorazepam (Lorazepam 2 Mg/Ml Sdv) 0 mg IV ASDIRECTED [facility]; Protocol Lorazepam (Lorazepam 1 Mg Tab) 0 mg PO ASDIRECTED [facility]; Protocol Ondansetron HCl (Ondansetron 4 Mg/2 Ml Sdv) 4 mg IVPUSH Q4H PRN PRN Reason: Nausea/Vomiting Last Admin: 11/30/20 08:53 Dose: 4 mg Documented by: Pantoprazole Sodium (Pantoprazole 40 Mg Vial) 40 mg IV DAILY [facility] Last Admin: 11/30/20 08:52 Dose: 40 mg Documented by: Potassium Chloride (Potassium Chloride 20 Meq Packet) 40 meq PO BID [facility] Last Admin: 11/30/20 20:46 Dose: 40 meq Documented by: Thiamine HCl (Thiamine 100 Mg Tab) 100 mg PO BEDTIME [facility] Last Admin: 11/30/20 20:46 Dose: 100 mg Documented by: Discontinued Medications Ceftriaxone Sodium (Ceftriaxone 2 Gm Vial) 1 gm IVPUSH ONETIME ONE Stop: 11/29/20 14:11 Last Admin: 11/29/20 14:25 Dose: 1 gm Documented by: Chlordiazepoxide HCl (Chlordiazepoxide 25 Mg Cap) 25 mg PO Q8H [facility] Last Admin: 12/01/20 01:22 Dose: 25 mg Documented by: Sodium Chloride (Normal Saline) 1,000 mls @ 999 mls/hr IV .BOLUS ONE Stop: 11/29/20 14:04 Last Admin: 11/29/20 13:05 Dose: 999 mls/hr Documented by: Multivitamins/Minerals 10 ml/Thiamine HCl 100 mg/ Folic Acid 1 mg/ Magnesium Sulfate 3 gm/ Sodium Chloride 1,017.2 mls @ 999 mls/hr IV ASDIRECTED [facility] Last Admin: 11/29/20 13:47 Dose: 999 mls/hr Documented by: Potassium Chloride/Dextrose/Sod Cl (D5 1/2 Ns W/ 20 Meq/L Kcl) 1,000 mls @ 125 mls/hr IV ASDIRECTED [facility] Potassium Chloride/Dextrose/Sod Cl (D5 1/2 Ns W/ 20 Meq/L Kcl) 1,000 mls @ 125 mls/hr IV Q8H [facility] Last Admin: 11/29/20 16:30 Dose: 125 mls/hr Documented by: Lorazepam (Lorazepam 2 Mg/Ml Sdv) 1 mg IVPUSH ONETIME ONE Stop: 11/29/20 14:52 Last Admin: 11/29/20 15:10 Dose: 1 mg Documented by: Metoclopramide HCl (Metoclopramide 10 Mg/2 Ml Sdv) 10 mg IVPUSH ONETIME ONE Stop: 11/29/20 14:11 Last Admin: 11/29/20 14:20 Dose: 10 mg Documented by: Potassium Chloride (Potassium Chloride 20 Meq Tab.Er) 40 meq PO BID [facility] Last Admin: 11/30/20 08:53 Dose: 40 meq Documented by: Potassium Chloride (Potassium Chloride 20 Meq Packet) 20 meq PO ONETIME ONE Stop: 11/30/20 09:18 Last Admin: 11/30/20 10:10 Dose: 20 meq Documented by: - Exam Quality Assessment: Supplemental Oxygen General: Alert, Oriented, Cooperative, No Acute Distress HEENT: EOMI, Mucous Membr. Moist/[place] Lungs: Clear to Auscultation, Normal Respiratory Effort Cardiovascular: Regular Rate, Regular Rhythm, No Murmurs GI/Abdominal Exam: Normal Bowel Sounds, Soft, Non-Tender Back Exam: Normal Inspection. No: CVA Tenderness (R), CVA Tenderness (L) Extremities: Normal Inspection Peripheral Pulses: 2+: Radial (L), Radial (R), Dorsalis Pedis (L), Dorsalis Pedis (R) Skin: Warm, Dry Neurological: No New Focal Deficit Psy/Mental Status: Alert, Normal Affect, Normal Mood - Patient Data Lab Results Last 24 hrs: Laboratory Results - last 24 hr 03/06/1411/30/20 12/01/20 Range/Units 13:00 13:00 06:15 WBC 6.3 5.0 (3.0-10.3) x10-3/uL RBC 3.46 L 3.65 (3.60-5.20) x10(6)uL Hgb 11.6 12.4 (11.4-15.5) g/dL Hct 34.8 36.4 (34.2-48.2) % MCV 100.4 99.6 (76.7-100.5) fL MCH 33.5 33.9 (23.9-33.9) pg MCHC 33.4 34.0 (31.9-34.8) g/dL RDW 13.6 13.6 (12.3-16.5) % Plt Count 76 L 77 L (151-488) x10(3)uL MPV 9.1 9.2 (7.1-12.4) fL Neut % (Auto) 76.3 H 57.1 (30.8-76.2) % Lymph % (Auto) 17.7 L 32.6 (18.4-52.1) % [place] % (Auto) 4.7 7.4 (4.4-15.7) % Eos % (Auto) 0.8 2.3 (0.6-8.1) % Baso % (Auto) 0.5 0.6 (0.2-1.5) % Neut # (Auto) 4.8 2.8 (1.5-6.3) x10-3/uL Lymph # (Auto) 1.1 1.6 (1.0-4.4) x10-3/uL [place] # (Auto) 0.3 0.4 (0.3-1.0) x10-3/uL Eos # (Auto) 0.1 0.1 (0.0-0.8) x10-3/uL Baso # (Auto) 0.0 0.0 (0.0-0.1) x10-3/uL Sodium 134 L (135-145) mmol/L Potassium 3.3 L (3.5-5.3) mmol/L Chloride 97 L (100-110) mmol/L Carbon Dioxide 23 (21-32) mmol/L BUN 8 (7-18) mg/dL Creatinine 0.7 (0.55-1.02) mg/dL Est Cr Clr Drug Dosing 84.90 mL/min Estimated GFR (MDRD) > 60 (>60) BUN/Creatinine Ratio 11.4 (9-20) Glucose 146 H (80-116) mg/dL Calcium 7.8 L (8.6-10.2) mg/dL Magnesium 2.0 (1.8-2.5) mg/dL 12/01/20 Range/Units 06:15 WBC (3.0-10.3) x10-3/uL RBC (3.60-5.20) x10(6)uL Hgb (11.4-15.5) g/dL Hct (34.2-48.2) % MCV (76.7-100.5) fL MCH (23.9-33.9) pg MCHC (31.9-34.8) g/dL RDW (12.3-16.5) % Plt Count (151-488) x10(3)uL MPV (7.1-12.4) fL Neut % (Auto) (30.8-76.2) % Lymph % (Auto) (18.4-52.1) % [place] % (Auto) (4.4-15.7) % Eos % (Auto) (0.6-8.1) % Baso % (Auto) (0.2-1.5) % Neut # (Auto) (1.5-6.3) x10-3/uL Lymph # (Auto) (1.0-4.4) x10-3/uL [place]eves # (Auto) (0.3-1.0) x10-3/uL Eos # (Auto) (0.0-0.8) x10-3/uL Baso # (Auto) (0.0-0.1) x10-3/uL Sodium 134 L (135-145) mmol/L Potassium 3.6 (3.5-5.3) mmol/L Chloride 99 L (100-110) mmol/L Carbon Dioxide 24 (21-32) mmol/L BUN 5 L (7-18) mg/dL Creatinine 0.6 (0.55-1.02) mg/dL Est Cr Clr Drug Dosing 99.05 mL/min Estimated GFR (MDRD) > 60 (>60) BUN/Creatinine Ratio 8.3 L (9-20) Glucose 110 (80-116) mg/dL Calcium 8.1 L (8.6-10.2) mg/dL Magnesium (1.8-2.5) mg/dL Result Diagrams: 12/01/20 06:15 12/01/20 06:15 Jonathon Results Last 24 hrs: Microbiology 11/29/20 13:25 Urine Culture - Final Urine, Clean Catch Escherichia Coli Sepsis Event Note - Evaluation Sepsis Screening Result: No Definite Risk - Focused Exam Vital Signs: Vital Signs Temp Pulse Resp BP Pulse Ox 12/01/20 05:13 36.4 C 69 18 138/76 99 11/30/20 23:21 36.6 C 87 18 141/72 H 97 - Problem List & Annotations (1) Alcohol withdrawal syndrome SNOMED Code(s): 415713699 Code(s): F10.239 - ALCOHOL DEPENDENCE WITH WITHDRAWAL, UNSPECIFIED Status: Acute Current Visit: No (2) Alcohol abuse SNOMED Code(s): 42258780 Code(s): F10.10 - ALCOHOL ABUSE, UNCOMPLICATED Status: Acute Current V isit: No (3) Moderate dehydration SNOMED Code(s): 0087407540189 Code(s): E86.0 - DEHYDRATION Status: Acute Current Visit: No (4) Ketonuria SNOMED Code(s): 489674937 Code(s): R82.4 - ACETONURIA Status: Acute Current Visit: No (5) Urinary tract infection SNOMED Code(s): 96427294 Code(s): N39.0 - URINARY TRACT INFECTION, SITE NOT SPECIFIED Status: Acute Current Visit: No (6) Thrombocytopenia SNOMED Code(s): 662339173 Code(s): D69.6 - THROMBOCYTOPENIA, UNSPECIFIED Status: Acute Current Visit: No (7) Elevated liver function tests SNOMED Code(s): 295631781 Code(s): R79.89 - OTHER SPECIFIED ABNORMAL FINDINGS OF BLOOD CHEMISTRY Status: Acute Current Visit: No (8) Hypomagnesemia SNOMED Code(s): 264868870 Code(s): E83.42 - HYPOMAGNESEMIA Status: Acute Current Visit: No (9) Hypokalemia SNOMED Code(s): 44231267 Code(s): E87.6 - HYPOKALEMIA Status: Acute Current Visit: No (10) Hyperglycemia SNOMED Code(s): 68918000 Code(s): R73.9 - HYPERGLYCEMIA, UNSPECIFIED Status: Acute Current Visit: No (11) Macrocytosis SNOMED Code(s): 480765450 Code(s): D75.89 - OTHER SPECIFIED DISEASES OF BLOOD AND BLOOD-FORMING ORGANS Status: Acute Current Visit: No (12) Left-shifted white blood cells SNOMED Code(s): 28467539 Code(s): D72.89 - OTHER SPECIFIED DISORDERS OF WHITE BLOOD CELLS Status: Acute Current Visit: No (13) Abnormal EKG SNOMED Code(s): 843060112 Code(s): R94.31 - ABNORMAL ELECTROCARDIOGRAM [ECG] [EKG] Status: Acute Current Visit: No (14) Coarse tremors SNOMED Code(s): 03894630 Code(s): G25.2 - OTHER SPECIFIED FORMS OF TREMOR Status: Acute Current Visit: No (15) Nausea and vomiting SNOMED Code(s): 39673352 Code(s): R11.2 - NAUSEA WITH VOMITING, UNSPECIFIED Status: Acute Current Visit: No (16) Cigarette smoker SNOMED Code(s): 62011178 Code(s): F17.210 - NICOTINE DEPENDENCE, CIGARETTES, UNCOMPLICATED Status: Acute Current Visit: Yes - Problem List Review Problem List Initiated/Reviewed/Updated: Yes - My Orders Last 24 Hours: My Active Orders 11/30/20 08:04 Supplement (Dietary) [Dietary Supplements] [RC] WITHMEALSANDBED 11/30/20 08:30 Thiamine [Vitamin B-1] 100 mg PO BEDTIME 11/30/20 08:34 Polyvinyl Alcohol [LiquiTears 1.4% Ophth Soln] 0 ml EYEBOTH ASDIRECTED PRN 11/30/20 09:00 Folic Acid 1 mg PO DAILY 11/30/20 11:47 Notify Provider [RC] PRN 11/30/20 12:00 LORazepam [Ativan] See Protocol PO ASDIRECTED cefTRIAXone [Rocephin] 1 gm IVPUSH Q24H 11/30/20 21:00 Potassium Chloride [Klor-Con] 40 meq PO BID 12/01/20 00:00 CIWAA Assessment [RC] Q4HWA 12/01/20 07:55 Loperamide [Imodium] 4 mg PO Q6H PRN 12/01/20 11:00 chlordiazePOXIDE [Librium] 25 mg PO BID - Plan Plan:: Patient's CIWA scores have been low and she has not needed Ativan in addition to Librium. Stop Librium every 8 hours, next dose of 25 mg Librium at 1100 this morning and then hold Librium. Stop IV fluids and supplemental potassium. Hypokalemia has resolved. Labs have grossly normalized. Stop ceftriaxone after today's dose. CBC and CMP in the a.m. Likely discharge tomorrow if CIWA and labs are acceptable. As mentioned above I offered referral to forensic social worker and AA but patient declined.
[2020-12-01] MEDS: Folic Acid 1 MG Tab PO SCH (08:38)
[2020-12-01] MEDS: Pantoprazole 40 MG Vial IV SCH (09:18)
[2020-12-01] MEDS ORDERED: chlordiazePOXIDE 25 MG Cap PO SCH (11:00)
[2020-12-01] MEDS ORDERED: chlordiazePOXIDE 25 MG Cap PO ONE (12:00)
[2020-12-01] MEDS: cefTRIAXone 1 GM Vial IVPUSH SCH (12:20)
[2020-12-01] MEDS: Thiamine 100 MG Tab PO SCH (20:04)
--- NOTE | 2020-12-02 08:27 | PCM.DCSUM1 ---
Discharge Summary - Hospital Course Free Text/Narrative:: 45-year-old lady with past medical history significant for severe vega covering most of her body and chronic alcohol abuse was admitted from the emergency department after presenting with alcohol withdrawal seizure. Patient states that she is very committed to stop drinking and had not been drinking for approximately 3 days. She was treated with alcohol withdrawal protocol including Librium with Ativan according to CIWA scale. Patient was admitted on 11/29/2020. Last Librium, 25 mg, given at noon on 12/01/2020. Patient has not required additional Ativan and is symptom-free at this time. Patient had several abnormalities on CBC and BMP likely secondary to chronic liver disease and malnutrition. Patient stated that she had not had anything to eat for several days. Patient was treated with diet as tolerated and supplemental nutrition. Electrolytes were replenished. Patient was also found to have a urinary tract infection and was treated with 1 g ceftriaxone daily for 3 days. Patient is symptom-free at this time. Patient agreed to be discharged with naltrexone. Patient also stated that she had stopped taking Zoloft and that she had been taking Zoloft at 150 mg daily. Patient will be restarted at 50 mg daily for 1 week and then 100 mg daily for 1 week. Patient should follow up with her primary care physician for additional instructions. Patient agreed to follow-up with her primary care physician as soon as tomorrow. Also stated that she has already contacted her social security specialist and her care aid and her counselor and has arranged appointments. Diagnosis: Stroke: No - Discharge Data Discharge Date: 12/02/20 Discharge Disposition: Home, Self-Care 01 Condition: Good - Referral to Home Health Primary Care Physician: Laura Vidal NP - Discharge Diagnosis/Problem(s) (1) Alcohol withdrawal syndrome SNOMED Code(s): 604174693 ICD Code: F10.239 - ALCOHOL DEPENDENCE WITH WITHDRAWAL, UNSPECIFIED Status: Resolved Current Visit: No (2) Alcohol abuse SNOMED Code(s): 87345564 ICD Code: F10.10 - ALCOHOL ABUSE, UNCOMPLICATED Status: Chronic Current Visit: No (3) Moderate dehydration SNOMED Code(s): 9196613508595 ICD Code: E86.0 - DEHYDRATION Status: Resolved Current Visit: No (4) Ketonuria SNOMED Code(s): 473016624 ICD Code: R82.4 - ACETONURIA Status: Resolved Current Visit: No (5) Urinary tract infection SNOMED Code(s): 14648887 ICD Code: N39.0 - URINARY TRACT INFECTION, SITE NOT SPECIFIED Status: Resolved Current Visit: No (6) Thrombocytopenia SNOMED Code(s): 196926781 ICD Code: D69.6 - THROMBOCYTOPENIA, UNSPECIFIED Status: Acute Current Visit: No (7) Elevated liver function tests SNOMED Code(s): 215820473 ICD Code: R79.89 - OTHER SPECIFIED ABNORMAL FINDINGS OF BLOOD CHEMISTRY Status: Acute Current Visit: No (8) Hypomagnesemia SNOMED Code(s): 835198869 ICD Code: E83.42 - HYPOMAGNESEMIA Status: Resolved Current Visit: No (9) Hypokalemia SNOMED Code(s): 95821785 ICD Code: E87.6 - HYPOKALEMIA Status: Resolved Current Visit: No (10) Hyperglycemia SNOMED Code(s): 08613028 ICD Code: R73.9 - HYPERGLYCEMIA, UNSPECIFIED Status: Resolved Current Visit: No (11) Macrocytosis SNOMED Code(s): 848683139 ICD Code: D75.89 - OTHER SPECIFIED DISEASES OF BLOOD AND BLOOD-FORMING ORGANS Status: Resolved Current Visit: No (12) Left-shifted white blood cells SNOMED Code(s): 50664570 ICD Code: D72.89 - OTHER SPECIFIED DISORDERS OF WHITE BLOOD CELLS Status: Resolved Current Visit: No (13) Abnormal EKG SNOMED Code(s): 624416701 ICD Code: R94.31 - ABNORMAL ELECTROCARDIOGRAM [ECG] [EKG] Status: Acute Current Visit: No (14) Coarse tremors SNOMED Code(s): 13154984 ICD Code: G25.2 - OTHER SPECIFIED FORMS OF TREMOR Status: Resolved Current Visit: No (15) Nausea and vomiting SNOMED Code(s): 22598109 ICD Code: R11.2 - NAUSEA WITH VOMITING, UNSPECIFIED Status: Resolved Current Visit: No (16) Cigarette smoker SNOMED Code(s): 79285273 ICD Code: F17.210 - NICOTINE DEPENDENCE, CIGARETTES, UNCOMPLICATED Status: Chronic Current Visit: Yes - Patient Instructions Diet: Usual Diet as Tolerated Activity: As Tolerated - Discharge Plan *PRESCRIPTION DRUG MONITORING PROGRAM REVIEWED*: Not Applicable *COPY OF PRESCRIPTION DRUG MONITORING REPORT IN PATIENT CLAUDIA: Not Applicable Prescriptions/Med Rec: Folic Acid 1 mg PO DAILY #30 tablet Naltrexone 50 mg PO DAILY #30 tab Thiamine [Vitamin B-1] 100 mg PO BEDTIME #30 tablet Sertraline [Zoloft] 50 mg PO BEDTIME 14 Days #21 tab Home Medications: Home Meds Albuterol Sulfate [Proair Respiclick] 2 puff PO Q4HR PRN 11/29/20 [History] hydrOXYzine pamoate [Hydroxyzine Pamoate] 1 cap PO ASDIRECTED 11/29/20 [History] Folic Acid 1 mg PO DAILY #30 tablet 12/02/20 [Rx] Naltrexone 50 mg PO DAILY #30 tab 12/02/20 [Rx] Sertraline [Zoloft] 50 mg PO BEDTIME 14 Days #21 tab 12/02/20 [Rx] Thiamine [Vitamin B-1] 100 mg PO BEDTIME #30 tablet 12/02/20 [Rx] Patient Handouts: Urinary Tract Infection, Adult, [id number], Dehydration, Ad ult, [id number], Alcohol Abuse and Nutrition, Venous Thromboembolism Prevention Forms: ED Department Discharge Referrals: PCP,None [Ordering Only Provider] - - Discharge Summary/Plan Comment DC Time >30 min.: No - General Info Date of Service: 12/02/20 Admission Dx/Problem (Free Text: Admission Diagnosis/Problem Admission Diagnosis/Problem Alcohol withdrawal syndrome Subjective Update: Patient states that she feels well and is ready to go home. She has no complaints or concerns at this time. Functional Status: Reports: Pain Controlled, Tolerating Diet, Ambulating, Urinating - Review of Systems General: Reports: No Symptoms HEENT: Reports: No Symptoms Pulmonary: Reports: No Symptoms Cardiovascular: Reports: No Symptoms Gastrointestinal: Reports: No Symptoms Genitourinary: Reports: No Symptoms Musculoskeletal: Reports: No Symptoms Skin: Reports: No Symptoms Neurological: Reports: No Symptoms Psychiatric: Reports: No Symptoms - Patient Data Vitals - Most Recent: Last Vital Signs Temp 36.4 C 12/02/20 00:00 Pulse 76 12/02/20 00:00 Resp 16 12/02/20 00:00 BP 158/82 H 12/02/20 00:00 Pulse Ox 100 12/02/20 00:00 Weight - Most Recent: 67.313 kg Lab Results - Last 24 hrs: Laboratory Results - last 24 hr 12/02/20 12/02/20 Range/Units 06:08 06:08 WBC 4.2 (3.0-10.3) x10-3/uL RBC 3.51 L (3.60-5.20) x10(6)uL Hgb 12.0 (11.4-15.5) g/dL Hct 34.1 L (34.2-48.2) % MCV 97.1 (76.7-100.5) fL MCH 34.2 H (23.9-33.9) pg MCHC 35.2 H (31.9-34.8) g/dL RDW 13.1 (12.3-16.5) % Plt Count 103 L (151-488) x10(3)uL MPV 8.5 (7.1-12.4) fL Neut % (Auto) 56.1 (30.8-76.2) % Lymph % (Auto) 29.2 (18.4-52.1) % [place] % (Auto) 8.6 (4.4-15.7) % Eos % (Auto) 4.8 (0.6-8.1) % Baso % (Auto) 1.3 (0.2-1.5) % Neut # (Auto) 2.3 (1.5-6.3) x10-3/uL Lymph # (Auto) 1.2 (1.0-4.4) x10-3/uL [place] # (Auto) 0.4 (0.3-1.0) x10-3/uL Eos # (Auto) 0.2 (0.0-0.8) x10-3/uL Baso # (Auto) 0.1 (0.0-0.1) x10-3/uL Sodium 137 (135-145) mmol/L Potassium 3.9 (3.5-5.3) mmol/L Chloride 100 (100-110) mmol/L Carbon Dioxide 27 (21-32) mmol/L BUN 11 (7-18) mg/dL Creatinine 0.5 L (0.55-1.02) mg/dL Est Cr Clr Drug Dosing 118.85 mL/min Estimated GFR (MDRD) > 60 (>60) BUN/Creatinine Ratio 22.0 H (9-20) Glucose 109 (80-116) mg/dL Calcium 9.1 (8.6-10.2) mg/dL Total Bilirubin 0.4 (0.1-1.3) mg/dL AST 38 H D (5-25) IU/L ALT 42 H D (12-36) U/L Alkaline Phosphatase 65 (56-112) IU/L Total Protein 6.7 (6.0-8.0) g/dL Albumin 3.3 L (3.5-5.2) g/dL Globulin 3.4 g/dL Albumin/Globulin Ratio 1.0 CLEVE Results - Last 24 hrs: Microbiology 11/29/20 13:25 Urine Culture - Final Urine, Clean Catch Escherichia Coli Med Orders - Current: Current Medications Artificial Tears (Polyvinyl Alcohol 1.4% Ophth Soln 15 Ml Bottle) 0 ml EYEBOTH ASDIRECTED PRN PRN Reason: Dry Eyes Clonidine HCl (Clonidine 0.1 Mg Tab) 0.1 mg PO Q6H PRN PRN Reason: Adrenergic Systems Folic Acid (Folic Acid 1 Mg Tab) 1 mg PO DAILY [facility] Last Admin: 12/01/20 08:38 Dose: 1 mg Documented by: Loperamide HCl (Loperamide 2 Mg Cap) 4 mg PO Q6H PRN PRN Reason: Diarrhea Last Admin: 12/01/20 08:40 Dose: 4 mg Documented by: Lorazepam (Lorazepam 1 Mg Tab) 0 mg PO ASDIRECTED [facility]; Protocol Ondansetron HCl (Ondansetron 4 Mg/2 Ml Sdv) 4 mg IVPUSH Q4H PRN PRN Reason: Nausea/Vomiting Last Admin: 11/30/20 08:53 Dose: 4 mg Documented by: Thiamine HCl (Thiamine 100 Mg Tab) 100 mg PO BEDTIME [facility] Last Admin: 12/01/20 20:04 Dose: 100 mg Documented by: Discontinued Medications Ceftriaxone Sodium (Ceftriaxone 2 Gm Vial) 1 gm IVPUSH ONETIME ONE Stop: 11/29/20 14:11 Last Admin: 11/29/20 14:25 Dose: 1 gm Documented by: Ceftriaxone Sodium (Ceftriaxone 1 Gm Vial) 1 gm IVPUSH Q24H [facility] Last Admin: 12/01/20 12:20 Dose: 1 gm Documented by: Chlordiazepoxide HCl (Chlordiazepoxide 25 Mg Cap) 25 mg PO Q8H [facility] Last Admin: 12/01/20 01:22 Dose: 25 mg Documented by: Chlordiazepoxide HCl (Chlordiazepoxide 25 Mg Cap) 25 mg PO BID [facility] Chlordiazepoxide HCl (Chlordiazepoxide 25 Mg Cap) 25 mg PO ONETIME ONE Stop: 12/01/20 12:01 Last Admin: 12/01/20 11:32 Dose: 25 mg Documented by: Sodium Chloride (Normal Saline) 1,000 mls @ 999 mls/hr IV .BOLUS ONE Stop: 11/29/20 14:04 Last Admin: 11/29/20 13:05 Dose: 999 mls/hr Documented by: Multivitamins/Minerals 10 ml/Thiamine HCl 100 mg/ Folic Acid 1 mg/ Magnesium Sulfate 3 gm/ Sodium Chloride 1,017.2 mls @ 999 mls/hr IV ASDIRECTED [facility] Last Admin: 11/29/20 13:47 Dose: 999 mls/hr Documented by: Potassium Chloride/Dextrose/Sod Cl (D5 1/2 Ns W/ 20 Meq/L Kcl) 1,000 mls @ 125 mls/hr IV ASDIRECTED [facility] Potassium Chloride/Dextrose/Sod Cl (D5 1/2 Ns W/ 20 Meq/L Kcl) 1,000 mls @ 125 mls/hr IV Q8H [facility] Last Admin: 11/29/20 16:30 Dose: 125 mls/hr Documented by: Sodium Chloride (Normal Saline) 1,000 mls @ 75 mls/hr IV ASDIRECTED [facility] Last Admin: 12/01/20 05:27 Dose: 75 mls/hr Documented by: Lorazepam (Lorazepam 2 Mg/Ml Sdv) 1 mg IVPUSH ONETIME ONE Stop: 11/29/20 14:52 Last Admin: 11/29/20 15:10 Dose: 1 mg Documented by: Lorazepam (Lorazepam 2 Mg/Ml Sdv) 0 mg IV ASDIRECTED [facility]; Protocol Metoclopramide HCl (Metoclopramide 10 Mg/2 Ml Sdv) 10 mg IVPUSH ONETIME ONE Stop: 11/29/20 14:11 Last Admin: 11/29/20 14:20 Dose: 10 mg Documented by: Pantoprazole Sodium (Pantoprazole 40 Mg Vial) 40 mg IV DAILY [facility] Last Admin: 12/01/20 09:18 Dose: 40 mg Documented by: Potassium Chloride (Potassium Chloride 20 Meq Tab.Er) 40 meq PO BID [facility] Last Admin: 11/30/20 08:53 Dose: 40 meq Documented by: Potassium Chloride (Potassium Chloride 20 Meq Packet) 20 meq PO ONETIME ONE Stop: 11/30/20 09:18 Last Admin: 11/30/20 10:10 Dose: 20 meq Documented by: Potassium Chloride (Potassium Chloride 20 Meq Packet) 40 meq PO BID [facility] Last Admin: 11/30/20 20:46 Dose: 40 meq Documented by: - Exam General: Reports: Alert, Oriented, Cooperative, No Acute Distress HEENT: Reports: EOMI, Mucous Membr. Moist/[place] Lungs: Reports: Clear to Auscultation, Normal Respiratory Effort Cardiovascular: Reports: Regular Rate, Regular Rhythm, No Murmurs GI/Abdominal Exam: Normal Bowel Sounds, Soft, Non-Tender Back Exam: Reports: Normal Inspection. Denies: CVA Tenderness (R), CVA Tenderness (L) Extremities: Normal Inspection Skin: Reports: Warm, Dry Neurological: Reports: No New Focal Deficit, Other (Proprioception is intact in the bilateral upper and lower extremities, Romberg test is negative) Psy/Mental Status: Reports: Alert, Normal Affect, Normal Mood
[2020-12-02] MEDS: Folic Acid 1 MG Tab PO SCH (09:06)
[2020-12-02 10:33] VITALS: BP 147/101; PULSE 75
== END 2020-12-02 09:50 | disposition home or self-care (01) | DRG 897 ==
LOC: FB.ED 12:43 → FB.MS 15:21
PROVIDERS: ADMIT Emergency Medicine; ATTEND Student in an Organized Health Care Education/Training Program
DX: F10.239 Alcohol dependence with withdrawal, unspecified (principal); F10.139 Alcohol abuse with withdrawal, unspecified; N39.0 Urinary tract infection, site not specified; R82.4 Acetonuria; E46 Unspecified protein-calorie malnutrition; E86.0 Dehydration; D69.1 Qualitative platelet defects; D69.6 Thrombocytopenia, unspecified; R79.89 Other specified abnormal findings of blood chemistry; E83.42 Hypomagnesemia; E87.6 Hypokalemia; R11.2 Nausea with vomiting, unspecified; Z20.822 Contact with and (suspected) exposure to COVID-19; D75.89 Other specified diseases of blood and blood-forming organs; D72.89 Other specified disorders of white blood cells; R94.31 Abnormal electrocardiogram [ECG] [EKG]; G25.2 Other specified forms of tremor; F17.210 Nicotine dependence, cigarettes, uncomplicated; J45.909 Unspecified asthma, uncomplicated; F31.9 Bipolar disorder, unspecified; F43.10 Post-traumatic stress disorder, unspecified; R73.9 Hyperglycemia, unspecified; Z79.899 Other long term (current) drug therapy; Z68.25 Body mass index [BMI] 25.0-25.9, adult
CPT/HCPCS: 36415; 80053; 80305; 80307; 81001; 81025; 82607; 82962; 83036; 83690; 83735; 84443; 84484; 85025; 86140; 87086; 87088; 87186; 87635; 93005; 93010; 96365; 96375; 99285 ×2; J0696; J2060; J2765; J3411; J3475; J7030 ×2; 80048; 82746; A9270-GY; C9113; J2405; J3480; J3490; U0002

== ENCOUNTER 2021-03-02 18:00 | Emergency (ER) | payer OTHER, MEDICAID ==
[2021-03-02] MEDS ORDERED: Thiamine 100 MG in Sodium Chloride 0.9% 100 ML IV STA ×2 (18:17→19:24)
[2021-03-02] MEDS ORDERED: Sodium Chloride 0.9% 10 ML Syringe FLUSH PRN (18:17)
[2021-03-02] MEDS ORDERED: Ondansetron 4 MG/2 ML SDV IVPUSH STA (18:17)
[2021-03-02] MEDS ORDERED: LORazepam 2 MG/ML SDV IVPUSH STA ×2 (18:25→19:27)
[2021-03-02] MEDS ORDERED: Sodium Chloride 0.9% 1,000 ML IV SCH ×2 (18:30)
[2021-03-02] MEDS ORDERED: Potassium Chloride 20 MEQ Tab.ER PO STA (19:10)
[2021-03-02] MEDS ORDERED: Diazepam 5 MG Tab PO ONE (19:25)
[2021-03-02] MEDS ORDERED: Multivitamin, Childrens Tab.Chew PO STA (19:25)
[2021-03-02] MEDS ORDERED: Multivitamin Tab PO STA (19:32)
[2021-03-02] MEDS ORDERED: Thiamine 100 MG in Sodium Chloride 0.9% 100 ML IV ONE (19:36)
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
[2021-03-02] MEDS ORDERED: NS + KCl 20mEq/L 1,000 ML IV SCH (20:00)
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
[2021-03-02] MEDS ORDERED: Promethazine 25 MG/ML SDV IM STA (20:23)
[2021-03-02] MEDS ORDERED: Prochlorperazine 10 MG in Sodium Chloride 0.9% 50 ML IV ONE (20:51)
[2021-03-02] MEDS ORDERED: LORazepam 2 MG/ML SDV IVPUSH ONE (20:51)
[2021-03-02] MEDS ORDERED: Prochlorperazine 10 MG/2 ML SDV IVPUSH ONE (21:00)
[2021-03-03 02:06] VITALS: BP 140/74; PULSE 88
== END 2021-03-02 21:18 | disposition other institution (70) ==
LOC: FB.ED 18:00
DX: F10.120 Alcohol abuse with intoxication, uncomplicated (principal); Y90.6 Blood alcohol level of 120-199 mg/100 ml; J45.909 Unspecified asthma, uncomplicated; Z79.899 Other long term (current) drug therapy
CPT/HCPCS: 36415; 80053; 80307; 82150; 83690; 85025; 96365; 96372; 96375; 96376; 99284; 99284-25; A9270-GY; J0780; J2060; J2405; J2550; J3411; J3480; J7030

== ENCOUNTER 2021-08-23 18:11 | Emergency (ER) | payer OTHER, MEDICAID ==
[2021-08-23] MEDS ORDERED: Sodium Chloride 0.9% 10 ML Syringe FLUSH PRN (18:25)
[2021-08-23] MEDS ORDERED: Sodium Chloride 0.9% 1,000 ML IV ONE (18:26)
[2021-08-23] MEDS ORDERED: Thiamine 200 MG/2 ML MDV IVPUSH ONE (18:26)
[2021-08-23] MEDS ORDERED: Ondansetron 4 MG/2 ML SDV IVPUSH ONE (18:28)
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
[2021-08-23 19:07] VITALS: BP 142/85; PULSE 104
== END 2021-08-23 19:38 | disposition other institution (70) ==
LOC: FB.ED 18:11
DX: F10.129 Alcohol abuse with intoxication, unspecified (principal); R79.89 Other specified abnormal findings of blood chemistry; Y90.5 Blood alcohol level of 100-119 mg/100 ml
CPT/HCPCS: 36415; 80053; 80307; 85025; 96374; 96375; 99284-25; J2405; J3411; J7030

== ENCOUNTER 2023-03-07 06:20 | Day surgery (SDC) | payer OTHER, MEDICAID ==
[~2023-03-07 06:20] MED LIST: Lactated Ringers 1,000 ML IV SCH; Sodium Chloride 0.9% 10 ML Syringe FLUSH PRN
[2023-03-07] MEDS ORDERED: Propofol 200 MG/20 ML SDV IV ONE (06:21)
[2023-03-07] MEDS ORDERED: Ondansetron 4 MG/2 ML SDV IVPUSH ONE (06:21)
[2023-03-07] MEDS ORDERED: Lidocaine 2% 5 ML SDV IV ONE (06:21)
[2023-03-07] MEDS ORDERED: Midazolam 1 MG/ML 2 ML SDV IV ONE (06:21)
[2023-03-07] MEDS ORDERED: Ketamine 500 mg/10 ML MDV IV ONE (06:21)
[2023-03-07] MEDS ORDERED: Simethicone Drops 40 MG/0.6 ML 30 ML Bottle ONE (07:45)
[2023-03-07 10:15] VITALS: BP 110/62; PULSE 59
== END 2023-03-07 08:49 | disposition home or self-care (01) ==
LOC: FB.SDS 06:20
PROVIDERS: ATTEND Surgery
DX: Z12.11 Encounter for screening for malignant neoplasm of colon (principal); D12.6 Benign neoplasm of colon, unspecified; K62.1 Rectal polyp; K62.89 Other specified diseases of anus and rectum; G89.29 Other chronic pain; J45.909 Unspecified asthma, uncomplicated; F32.A Depression, unspecified; F41.9 Anxiety disorder, unspecified; F43.10 Post-traumatic stress disorder, unspecified; R56.9 Unspecified convulsions; F17.210 Nicotine dependence, cigarettes, uncomplicated; Z80.0 Family history of malignant neoplasm of digestive organs; Z79.899 Other long term (current) drug therapy; Z88.0 Allergy status to penicillin; Z98.890 Other specified postprocedural states; Z87.828 Personal history of other (healed) physical injury and trauma; Z88.5 Allergy status to narcotic agent
CPT/HCPCS: 00811; 45384; 45385; 88305; A9270; J2250; J2405; J2704; J3490; J7120

== ENCOUNTER 2025-05-14 19:55 | Emergency (ER) | payer OTHER, MEDICAID ==
[2025-05-14 20:42] VITALS: BP 137/94; PULSE 123
== END 2025-05-14 21:50 ==
LOC: FB.ED 19:55
DX: F10.120 Alcohol abuse with intoxication, uncomplicated (principal); J44.9 Chronic obstructive pulmonary disease, unspecified; F17.200 Nicotine dependence, unspecified, uncomplicated; Z88.0 Allergy status to penicillin; Z88.5 Allergy status to narcotic agent; Z88.8 Allergy status to other drugs, medicaments and biological substances; Z79.51 Long term (current) use of inhaled steroids; Z79.899 Other long term (current) drug therapy; Y90.9 Presence of alcohol in blood, level not specified
CPT/HCPCS: 99283